=== PATIENT | female | born 1940 | race Caucasian/White ===

== ENCOUNTER 2020-11-29 18:51 | Inpatient (IN) | payer MEDICARE, MEDICAID ==
[~2020-11-29] VITALS: Ht 162.6 cm; Wt 104.4 kg
--- NOTE | 2020-11-29 19:04 | PHYS DOC ---
General Adult EDM: Chief Complaint: MEDICAL CLEARANCE HPI: HPI: 80-year-old female presents for medical clearance for behavioral health admission. The patient was reported to be anxious, touching other residents, and being uncooperative at her care facility. She denies any medical complaints to me. Review of Systems: Review of Systems: Constitutional: Denies fever or chills Eyes: Denies change in visual acuity HENT: Denies nasal congestion or sore throat Respiratory: Denies cough or shortness of breath Cardiovascular: Denies chest pain or edema GI: Denies abdominal pain, nausea, vomiting, bloody stools or diarrhea : Denies dysuria Musculoskeletal: Denies back pain or joint pain Integument: Denies rash Neurologic: Denies headache, focal weakness or sensory changes Endocrine: Denies polyuria or polydipsia Lymphatic: Denies swollen glands Psychiatric: Denies depression or anxiety Physical Exam: PE: Constitutional: Well developed, well nourished, no acute distress, non-toxic appearance. [] HENT: Normocephalic, atraumatic, bilateral external ears normal, oropharynx moist, no oral exudates, nose normal. [] Eyes: PERRLA, EOMI, conjunctiva normal, no discharge. [] Neck: Normal range of motion, no tenderness, supple, no stridor. [] Cardiovascular:Heart rate regular rhythm, no murmur [] Lungs & Thorax: Bilateral breath sounds clear to auscultation [] Abdomen: Bowel sounds normal, soft, no tenderness, no masses, no pulsatile masses. [] Skin: Warm, dry, no erythema, no rash. [] Back: No tenderness, no CVA tenderness. [] Extremities: No tenderness, no cyanosis, no clubbing, ROM intact, no edema. [] Neurologic: Alert and oriented X 3, normal motor function, normal sensory function, no focal deficits noted. [] Psychologic: Affect normal, judgement normal, mood normal. [] EKG: EKG: Irregular rhythm, rate 63, normal axis, no ST elevation or depression, A. fib. [] Radiology/Procedures: Radiology/Procedures: [] Heart Score: C/O Chest Pain: N/A Risk Factors: Risk Factors: DM, Current or recent (<one month) smoker, HTN, HLP, family history of CAD, obesity. Risk Scores: Score 0 - 3: 2.5% MACE over next 6 weeks - Discharge Home Score 4 - 6: 20.3% MACE over next 6 weeks - Admit for Clinical Observation Score 7 - 10: 72.7% MACE over next 6 weeks - Early Invasive Strategies Course & Med Decision Making: Course & Med Decision Making Pertinent Labs and Imaging studies reviewed. (See chart for details) The patient's labs are unremarkable. Her EKG shows A. fib rate controlled. The patient urinated right before we were able to catheter. Based on her lab values, it seems that infection is unlikely. She is medically stable for behavioral health admission at this time. Urinalysis can be done on the floor. [] Dragon Disclaimer: Dragon Disclaimer: This electronic medical record was generated, in whole or in part, using a voice recognition dictation system. Departure Departure: Impression: Primary Impression: Medical clearance for psychiatric admission Disposition: HOME / SELF CARE / HOMELESS Condition: STABLE Referrals: PCP,UNKNOWN (PCP) ANAHI ROSALES DO Nov 29, 2020 19:03
[2020-11-29 19:39] LABS: BASO % 1 % (0-3); EOS # 0.2 x10^3/uL (0.0-0.7); EOS % 5 % (0-3); HEMATOCRIT 33.2 % (36.0-47.0); LYMPH # 1.1 x10^3/uL (1.0-4.8); LYMPH % 24 % (24-48); MEAN CORPUSCULAR HEMOGLOBIN 30 pg (25-35); MEAN CORPUSCULAR HGB CONC 33 g/dL (31-37); MEAN CORPUSCULAR VOLUME 92 fL (79-100); MONO # 0.6 x10^3/uL (0.0-1.1); MONO % 14 % (0-9); NEUT # 2.7 x10^3uL (1.8-7.7); NEUT % 56 % (31-73); PLATELET COUNT 116 x10^3/uL (140-400); RED BLOOD COUNT 3.62 x10^6/uL (3.50-5.40); RED CELL DISTRIBUTION WIDTH 13.5 % (11.5-14.5); WHITE BLOOD COUNT 4.7 x10^3/uL (4.0-11.0)
[2020-11-29 19:57] LABS: CALCIUM 8.5 mg/dL (8.5-10.1); CREATININE 1.2 mg/dL (0.6-1.0); GFR 43.2; POTASSIUM 3.7 mmol/L (3.5-5.1)
[2020-11-29 20:03] LABS: ALBUMIN 3.2 g/dL (3.4-5.0); MAGNESIUM 1.7 mg/dL (1.8-2.4); TOTAL BILIRUBIN 0.3 mg/dL (0.2-1.0); TOTAL PROTEIN 6.3 g/dL (6.4-8.2)
--- NOTE | 2020-11-29 21:16 | EKG ---
[address] [address] Test Date: 2020-11-29 Test Time: 20:07:51 Pat Name: SYLVESTER POWER Department: Room: Gender: F Ict Trainer: : 1940 Requested By: ANAHI ROSALES Order Number: [id number] Reading MD: Measurements Intervals Whitman Rate: 63 P: ME: QRS: 51 QRSD: 82 T: 56 QT: 404 QTc: 416 Interpretive Statements IRREGULAR RHYTHM, NO P-WAVE FOUND NO SPECIFIC ECG ABNORMALITIES RI6.02 No previous ECG available for comparison
[2020-11-29 21:29] LABS: BILIRUBIN,URINE NEG (NEG); CLARITY,URINE CLEAR; COLOR,URINE YELLOW; GLUCOSE,URINE NEG (NEG); NITRITE,URINE NEG (NEG); UROBILINOGEN,URINE 0.2 mg/dL (0.2 mg/dL)
[2020-11-29 21:31] LABS: BACTERIA,URINE FEW /HPF (0-FEW); RBC,URINE 0 /HPF (0-2); SQUAMOUS EPITHELIAL CELL,UR MOD /LPF; WBC,URINE RARE /HPF (0-4)
[2020-11-29] MEDS ORDERED: METHYL SALICYLATE/MENTHOL TOPICAL OINTMENT 57GM TUBE. TP PRN (21:45)
[2020-11-29] MEDS ORDERED: MAGNESIUM HYDROXIDE 2,400 MG/30 ML ORAL.SUSP. PO PRN (21:45)
[2020-11-29] MEDS ORDERED: ACETAMINOPHEN 325 MG TABLET PO PRN (21:45)
[2020-11-29] MEDS ORDERED: MAG HYDROX/AL HYDROX/SIMETH 30 ML ORAL.SUSP PO PRN (21:45)
[2020-11-29] MEDS ORDERED: ALPRAZolam 0.25 MG TABLET PO PRN (22:00)
[2020-11-29] MEDS ORDERED: CARB15DR2 OP (22:04)
[2020-11-29] MEDS ORDERED: HYDR-2759 PO (22:04)
[2020-11-29] MEDS ORDERED: GLIP5TAB10 PO (22:04)
[2020-11-29] MEDS ORDERED: PANT40TA6 PO (22:04)
[2020-11-29] MEDS ORDERED: POTA20TA4 PO (22:04)
[2020-11-29] MEDS ORDERED: FURO-68 PO (22:04)
[2020-11-29] MEDS ORDERED: SENN1TAB62 PO (22:04)
[2020-11-29] MEDS ORDERED: DICL100G28 TP (22:04)
[2020-11-29] MEDS ORDERED: CALC200T3 PO (22:04)
[2020-11-29] MEDS ORDERED: PARO20TA99 PO (22:04)
[2020-11-29] MEDS ORDERED: ASPI-630 PO (22:04)
[2020-11-29] MEDS ORDERED: MULT-445 PO (22:04)
[2020-11-29] MEDS ORDERED: DILT120C99 PO (22:04)
[2020-11-29] MEDS ORDERED: LEVO25TA4 PO (22:04)
[2020-11-29] MEDS ORDERED: ALPR0.25 PO (22:04)
[2020-11-29] MEDS ORDERED: SITA100T PO (22:04)
[2020-11-29] MEDS ORDERED: APIX5TAB3 PO (22:04)
--- NOTE | 2020-11-29 22:19 | PDOC ---
Exam Note: [place] Note: Please also refer to the separate dictated note~for this date of service dictated separately.~Patient seen individually. Discussed the patient with Nursing staff reviewed the chart.~Reviewed interim history and current functioning. Reviewed vital signs,~Labs/ Radiology~and current medications noted below. Continue current treatment with the changes noted in the dictated addendum note Assessment: Vital Signs/I&O: Vital Signs Date Time Temp Pulse Resp B/P (MAP) Pulse Ox O2 Delivery O2 Flow Rate FiO2 11/29/20 19:46 98.4 73 20 125/67 96 Room Air Labs: Laboratory Tests Test 11/29/20 19:13 11/29/20 20:55 White Blood Count 4.7 x10^3/uL (4.0-11.0) Red Blood Count 3.62 x10^6/uL (3.50-5.40) Hemoglobin 11.0 g/dL (12.0-15.5) L Hematocrit 33.2 % (36.0-47.0) L Mean Corpuscular Volume 92 fL (79-100) Mean Corpuscular Hemoglobin 30 pg (25-35) Mean Corpuscular Hemoglobin Concent 33 g/dL (31-37) Red Cell Distribution Width 13.5 % (11.5-14.5) Platelet Count 116 x10^3/uL (140-400) L Neutrophils (%) (Auto) 56 % (31-73) Lymphocytes (%) (Auto) 24 % (24-48) Monocytes (%) (Auto) 14 % (0-9) H Eosinophils (%) (Auto) 5 % (0-3) H Basophils (%) (Auto) 1 % (0-3) Neutrophils # (Auto) 2.7 x10^3uL (1.8-7.7) Lymphocytes # (Auto) 1.1 x10^3/uL (1.0-4.8) Monocytes # (Auto) 0.6 x10^3/uL (0.0-1.1) Eosinophils # (Auto) 0.2 x10^3/uL (0.0-0.7) Basophils # (Auto) 0.0 x10^3/uL (0.0-0.2) Sodium Level 136 mmol/L (136-145) Potassium Level 3.7 mmol/L (3.5-5.1) Chloride Level 100 mmol/L (98-107) Carbon Dioxide Level 27 mmol/L (21-32) Anion Gap 9 (6-14) Blood Urea Nitrogen 17 mg/dL (7-20) Creatinine 1.2 mg/dL (0.6-1.0) H Estimated GFR (Cockcroft-Gault) 43.2 BUN/Creatinine Ratio 14 (6-20) Glucose Level 177 mg/dL (70-99) H Calcium Level 8.5 mg/dL (8.5-10.1) Magnesium Level 1.7 mg/dL (1.8-2.4) L Total Bilirubin 0.3 mg/dL (0.2-1.0) Aspartate Amino Transferase (AST) 19 U/L (15-37) Alanine Aminotransferase (ALT) 16 U/L (14-59) Alkaline Phosphatase 114 U/L (46-116) Total Protein 6.3 g/dL (6.4-8.2) L Albumin 3.2 g/dL (3.4-5.0) L Albumin/Globulin Ratio 1.0 (1.0-1.7) Urine Collection Type Unknown Urine Color Yellow Urine Clarity Clear Urine pH 6.5 Urine Specific Haywood 1.015 Urine Protein Neg (NEG-TRACE) Urine Glucose (UA) Neg mg/dL (NEG) Urine Ketones (Stick) Neg mg/dL (NEG) Urine Blood Small (NEG) Urine Nitrite Neg (NEG) Urine Bilirubin Neg (NEG) Urine Urobilinogen Dipstick 0.2 mg/dL (0.2 mg/dL) Urine Leukocyte Esterase Neg (NEG) Urine RBC 0 /HPF (0-2) Urine WBC Rare /HPF (0-4) Urine Squamous Epithelial Cells Mod /LPF Urine Bacteria Few /HPF (0-FEW) Current Medications: I have reviewed the current psychotropics carefully including drug interactions. Risk benefit ratio favors no change other than as noted in my dictated progress note. GERRY TAYLOR MD Nov 29, 2020 22:19
[2020-11-29 22:23] VITALS: BP 148/76
--- NOTE | 2020-11-29 22:41 | NUR ---
Admission Note with Justification for Admission to [facility] Patient admitted to [facility] for protective oversight for emergency stabilization of acute psychiatric crisis. Pt admitted from: Hospital ER Mode of arrival: EMS Accompanied By: [facility] Staff Precipitating behaviors that initiated intake and admission:anxious, on the call light, constantly touching other residents, demanding, intrusive Description of failure of out patient attempts at stabilization in previous setting list behavior and medication trials:redirection, medications Behaviors and assessment findings upon admission: calm, cooperative, A/O x4 Plan: Admit for protective oversight for adjustment and stabilization of medications, behaviors and mood. Intense treatment regimen including groups, medication adjustments, therapy, consistent regimen for ADL's, self care, and sleep hygiene. Daily monitoring by Inpatient staff, Psychiatry, and Medical Physician.
[2020-11-30 07:00] LABS: ALBUMIN 3.3 g/dL (3.4-5.0); CALCIUM 8.6 mg/dL (8.5-10.1); CREATININE 1.1 mg/dL (0.6-1.0); GFR 47.8; MAGNESIUM 1.6 mg/dL (1.8-2.4); POTASSIUM 4.2 mmol/L (3.5-5.1); TOTAL BILIRUBIN 0.5 mg/dL (0.2-1.0); TOTAL PROTEIN 6.5 g/dL (6.4-8.2)
[2020-11-30 07:06] LABS: BASO % 1 % (0-3); EOS # 0.2 x10^3/uL (0.0-0.7); EOS % 5 % (0-3); HEMOGLOBIN 11.3 g/dL (12.0-15.5); LYMPH % 20 % (24-48); MEAN CORPUSCULAR HEMOGLOBIN 30 pg (25-35); MEAN CORPUSCULAR HGB CONC 33 g/dL (31-37); MEAN CORPUSCULAR VOLUME 91 fL (79-100); MONO # 0.5 x10^3/uL (0.0-1.1); MONO % 11 % (0-9); NEUT # 3.1 x10^3uL (1.8-7.7); NEUT % 64 % (31-73); PLATELET COUNT 116 x10^3/uL (140-400); RED BLOOD COUNT 3.73 x10^6/uL (3.50-5.40); RED CELL DISTRIBUTION WIDTH 13.6 % (11.5-14.5); WHITE BLOOD COUNT 4.8 x10^3/uL (4.0-11.0)
[2020-11-30] MEDS ORDERED: CALCIUM CARBONATE 500 MG TAB.CHEW PO PRN (07:45)
[2020-11-30] MEDS ORDERED: DICLOFENAC SODIUM 1% TOPICAL GEL 100GM TUBE. TP PRN (07:45)
[2020-11-30] MEDS ORDERED: LEVOTHYROXINE 25 MCG TABLET. PO SCH (08:00)
[2020-11-30] MEDS: APIXABAN 5 MG TABLET. PO SCH ×2 (08:10→21:12)
[2020-11-30] MEDS: LINAGLIPTIN 5 MG TABLET PO SCH (08:11)
[2020-11-30] MEDS: glipiZIDE 5 MG TABLET PO SCH ×2 (08:11→17:16)
[2020-11-30] MEDS: FUROSEMIDE 40 MG TABLET PO SCH (08:11)
[2020-11-30] MEDS: PANTOPRAZOLE 40 MG TABLET. PO SCH (08:11)
[2020-11-30] MEDS: PARoxetine 20 MG TABLET PO SCH (08:11)
[2020-11-30] MEDS: POTASSIUM CHLORIDE 20 MEQ TABLET.ER. PO SCH (08:12)
[2020-11-30] MEDS: SENNOSIDES/DOCUSATE 8.6/50MG TABLET. PO SCH (08:12)
[2020-11-30] MEDS ORDERED: NON FORMULARY ITEM (Sitagliptin Phosphate (Januvia) 100 MG) PO SCH (09:00)
[2020-11-30] MEDS ORDERED: NON FORMULARY ITEM (Multivitamin (Multivitamins) 1 EACH) PO SCH (09:00)
[2020-11-30] MEDS ORDERED: CARBOXYMETHYLCELLULOSE SODIUM OP SCH (09:00)
[2020-11-30 09:29] VITALS: BP 124/79
[2020-11-30] MEDS: ASPIRIN CHEWABLE 81 MG TABLET. PO SCH (09:35)
[2020-11-30] MEDS: MULTIVITAMIN I-VITE TABLET. PO SCH (09:35)
[2020-11-30] MEDS: POLYVINYL ALCOHOL/POVIDONE/PF OPHTH SOLUTION DROPERETTE. OU SCH ×3 (09:35→21:12)
[2020-11-30] MEDS: HYDROcodone/APAP 5/325MG 1 TAB TABLET PO SCH ×4 (09:36→21:12)
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
[2020-11-30 16:11] VITALS: BP 115/77
[2020-11-30 17:00] LABS: THYROID STIM HORMONE (TSH) 6.681 uIU/mL (0.358-3.740)
--- NOTE | 2020-11-30 22:12 | PDOC ---
Exam Note: Pelon Note: Please also refer to the separate dictated note~for this date of service dictated separately.~Patient seen individually. Discussed the patient with Nursing staff reviewed the chart.~Reviewed interim history and current functioning. Reviewed vital signs,~Labs/ Radiology~and current medications noted below. Continue current treatment with the changes noted in the dictated addendum note Assessment: Vital Signs/I&O: Vital Signs Date Time Temp Pulse Resp B/P (MAP) Pulse Ox O2 Delivery O2 Flow Rate FiO2 11/30/20 21:12 Room Air 11/30/20 17:46 95 11/30/20 16:11 97.5 78 18 115/77 (90) I & O 11/29/20 11/29/20 11/30/20 15:00 23:00 07:00 Intake Total 360 ml Balance 360 ml Labs: Laboratory Tests Test 11/30/20 05:45 11/30/20 19:12 White Blood Count 4.8 x10^3/uL (4.0-11.0) Red Blood Count 3.73 x10^6/uL (3.50-5.40) Hemoglobin 11.3 g/dL (12.0-15.5) L Hematocrit 34.0 % (36.0-47.0) L Mean Corpuscular Volume 91 fL (79-100) Mean Corpuscular Hemoglobin 30 pg (25-35) Mean Corpuscular Hemoglobin Concent 33 g/dL (31-37) Red Cell Distribution Width 13.6 % (11.5-14.5) Platelet Count 116 x10^3/uL (140-400) L Neutrophils (%) (Auto) 64 % (31-73) Lymphocytes (%) (Auto) 20 % (24-48) L Monocytes (%) (Auto) 11 % (0-9) H Eosinophils (%) (Auto) 5 % (0-3) H Basophils (%) (Auto) 1 % (0-3) Neutrophils # (Auto) 3.1 x10^3uL (1.8-7.7) Lymphocytes # (Auto) 1.0 x10^3/uL (1.0-4.8) Monocytes # (Auto) 0.5 x10^3/uL (0.0-1.1) Eosinophils # (Auto) 0.2 x10^3/uL (0.0-0.7) Basophils # (Auto) 0.0 x10^3/uL (0.0-0.2) D-Dimer (Gemma) 0.70 mg/L (0.00-0.50) H Sodium Level 138 mmol/L (136-145) Potassium Level 4.2 mmol/L (3.5-5.1) Chloride Level 101 mmol/L (98-107) Carbon Dioxide Level 30 mmol/L (21-32) Anion Gap 7 (6-14) Blood Urea Nitrogen 16 mg/dL (7-20) Creatinine 1.1 mg/dL (0.6-1.0) H Estimated GFR (Cockcroft-Gault) 47.8 BUN/Creatinine Ratio 15 (6-20) Glucose Level 152 mg/dL (70-99) H Calcium Level 8.6 mg/dL (8.5-10.1) Magnesium Level 1.6 mg/dL (1.8-2.4) L Total Bilirubin 0.5 mg/dL (0.2-1.0) Aspartate Amino Transferase (AST) 20 U/L (15-37) Alanine Aminotransferase (ALT) 17 U/L (14-59) Alkaline Phosphatase 117 U/L (46-116) H Total Protein 6.5 g/dL (6.4-8.2) Albumin 3.3 g/dL (3.4-5.0) L Albumin/Globulin Ratio 1.0 (1.0-1.7) Triglycerides Level 146 mg/dL (0-150) Cholesterol Level 182 mg/dL (0-200) LDL Cholesterol, Calculated 117 mg/dL (0-100) H VLDL Cholesterol, Calculated 29 mg/dL (0-40) Non-HDL Cholesterol Calculated 146 mg/dL (0-129) H HDL Cholesterol 36 mg/dL (40-60) L Cholesterol/HDL Ratio 5.0 Vitamin B12 Level 591 pg/mL (247-911) 25-Hydroxy Vitamin D Total 24.0 ng/mL (30-100) L Thyroid Stimulating Hormone (TSH) 6.681 uIU/mL (0.358-3.740) Treponema pallidum Antibody Nonreactive (Nonreactive) Glucose (Fingerstick) 194 mg/dL (70-99) H Current Medications: Meds: Laboratory Tests Test 11/30/20 05:45 11/30/20 19:12 White Blood Count 4.8 x10^3/uL Red Blood Count 3.73 x10^6/uL Hemoglobin 11.3 g/dL Hematocrit 34.0 % Mean Corpuscular Volume 91 fL Mean Corpuscular Hemoglobin 30 pg Mean Corpuscular Hemoglobin Concent 33 g/dL Red Cell Distribution Width 13.6 % Platelet Count 116 x10^3/uL Neutrophils (%) (Auto) 64 % Lymphocytes (%) (Auto) 20 % Monocytes (%) (Auto) 11 % Eosinophils (%) (Auto) 5 % Basophils (%) (Auto) 1 % Neutrophils # (Auto) 3.1 x10^3uL Lymphocytes # (Auto) 1.0 x10^3/uL Monocytes # (Auto) 0.5 x10^3/uL Eosinophils # (Auto) 0.2 x10^3/uL Basophils # (Auto) 0.0 x10^3/uL D-Dimer (Gemma) 0.70 mg/L Sodium Level 138 mmol/L Potassium Level 4.2 mmol/L Chloride Level 101 mmol/L Carbon Dioxide Level 30 mmol/L Anion Gap 7 Blood Urea Nitrogen 16 mg/dL Creatinine 1.1 mg/dL Estimated GFR (Cockcroft-Gault) 47.8 BUN/Creatinine Ratio 15 Glucose Level 152 mg/dL Calcium Level 8.6 mg/dL Magnesium Level 1.6 mg/dL Total Bilirubin 0.5 mg/dL Aspartate Amino Transf (AST/SGOT) 20 U/L Alanine Aminotransferase (ALT/SGPT) 17 U/L Alkaline Phosphatase 117 U/L Total Protein 6.5 g/dL Albumin 3.3 g/dL Albumin/Globulin Ratio 1.0 Triglycerides Level 146 mg/dL Cholesterol Level 182 mg/dL LDL Cholesterol, Calculated 117 mg/dL VLDL Cholesterol, Calculated 29 mg/dL Non-HDL Cholesterol Calculated 146 mg/dL HDL Cholesterol 36 mg/dL Cholesterol/HDL Ratio 5.0 Vitamin B12 Level 591 pg/mL 25-Hydroxy Vitamin D Total 24.0 ng/mL Thyroid Stimulating Hormone (TSH) 6.681 uIU/mL Treponema pallidum Antibody Nonreactive Glucose (Fingerstick) 194 mg/dL Current Medications Medications (Trade) Dose Ordered Sig/Fam Route PRN Reason Start Time Stop Time Status Last Admin Dose Admin Acetaminophen (Tylenol) 650 mg PRN Q6HRS PRN PO MILD PAIN / TEMP > 100.3'F 11/29/20 21:45 Multi-Ingredient Ointment (Analgesic Earp) 1 rena PRN QID PRN TP MUSCLE PAIN 11/29/20 21:45 Al Hydroxide/Mg Hydroxide (Mylanta Plus Xs) 15 ml PRN AFTMEALHC PRN PO DYSPEPSIA 11/29/20 21:45 Magnesium Hydroxide (Milk Of Magnesia) 2,400 mg PRN QHS PRN PO CONSTIPATION 11/29/20 21:45 Alprazolam (Xanax) 0.125 mg PRN Q6HRS PRN PO ANXIETY / AGITATION 11/29/20 22:00 Paroxetine HCl (Paxil) 20 mg DAILY PO 11/30/20 09:00 11/30/20 08:11 Apixaban (Eliquis) 5 mg BID PO 11/30/20 09:00 11/30/20 21:12 Aspirin (Aspirin Chewable) 81 mg DAILY PO 11/30/20 09:00 11/30/20 09:35 Calcium Carbonate/ Glycine (Tums) 500 mg PRN Q6HRS PRN PO INDIGESTION 11/30/20 07:45 Diclofenac Sodium (Voltaren) 1 rnea PRN Q6HRS PRN TP pain L hip 11/30/20 07:45 Diltiazem HCl (Cardizem 24hr Cd) 120 mg DAILY PO 11/30/20 09:00 11/30/20 08:11 Furosemide (Lasix) 40 mg DAILY PO 11/30/20 09:00 11/30/20 08:11 Glipizide (Glucotrol) 5 mg BIDWMEALS PO 11/30/20 08:00 11/30/20 17:16 Acetaminophen/ Hydrocodone Bitart (Lortab 5/325) 1.5 tab QID PO 11/30/20 09:00 11/30/20 21:12 Levothyroxine Sodium (Synthroid) 25 mcg DAILYAC PO 11/30/20 08:00 11/30/20 14:15 DC 11/30/20 08:12 Pantoprazole Sodium (Protonix) 40 mg DAILY PO 11/30/20 09:00 11/30/20 08:11 Potassium Chloride (Klor-Con) 20 meq DAILY PO 11/30/20 09:00 11/30/20 08:12 Senna/Docusate Sodium (Senna Plus) 2 tab DAILY PO 11/30/20 09:00 11/30/20 08:12 Non-Formulary Medication (Carboxymethylcellulose Sodium (Refresh Tears)) 1 drp TID OP 11/30/20 09:00 11/30/20 07:55 DC Non-Formulary Medication (Multivitamin (Multivitamins)) 1 each DAILY PO 11/30/20 09:00 11/30/20 07:55 DC Non-Formulary Medication (Sitagliptin Phosphate (Januvia)) 100 mg DAILY PO 11/30/20 09:00 11/30/20 07:51 DC Linagliptin (Tradjenta) 5 mg DAILY PO 11/30/20 09:00 11/30/20 08:11 Multivitamins/ Minerals (I-Bridget) 1 tab DAILY PO 11/30/20 09:00 11/30/20 09:35 Artificial Tears (Refresh Classic) 1 drop TID OU 11/30/20 09:00 11/30/20 21:12 Levothyroxine Sodium (Synthroid) 25 mcg 0600 PO 12/01/20 06:00 Current Medications Medications (Trade) Dose Ordered Sig/Fam Route PRN Reason Start Time Stop Time Status Last Admin Dose Admin Paroxetine HCl (Paxil) 20 mg DAILY PO 11/30/20 09:00 11/30/20 08:11 Apixaban (Eliquis) 5 mg BID PO 11/30/20 09:00 11/30/20 21:12 Aspirin (Aspirin Chewable) 81 mg DAILY PO 11/30/20 09:00 11/30/20 09:35 Diltiazem HCl (Cardizem 24hr Cd) 120 mg DAILY PO 11/30/20 09:00 11/30/20 08:11 Furosemide (Lasix) 40 mg DAILY PO 11/30/20 09:00 11/30/20 08:11 Glipizide (Glucotrol) 5 mg BIDWMEALS PO 11/30/20 08:00 11/30/20 17:16 Acetaminophen/ Hydrocodone Bitart (Lortab 5/325) 1.5 tab QID PO 11/30/20 09:00 11/30/20 21:12 Levothyroxine Sodium (Synthroid) 25 mcg DAILYAC PO 11/30/20 08:00 11/30/20 14:15 DC 11/30/20 08:12 Pantoprazole Sodium (Protonix) 40 mg DAILY PO 11/30/20 09:00 11/30/20 08:11 Potassium Chloride (Klor-Con) 20 meq DAILY PO 11/30/20 09:00 11/30/20 08:12 Senna/Docusate Sodium (Senna Plus) 2 tab DAILY PO 11/30/20 09:00 11/30/20 08:12 Linagliptin (Tradjenta) 5 mg DAILY PO 11/30/20 09:00 11/30/20 08:11 Multivitamins/ Minerals (I-Bridget) 1 tab DAILY PO 11/30/20 09:00 11/30/20 09:35 Artificial Tears (Refresh Classic) 1 drop TID OU 11/30/20 09:00 11/30/20 21:12 I have reviewed the current psychotropics carefully including drug interactions. Risk benefit ratio favors no change other than as noted in my dictated progress note. GERRY TAYLOR MD Nov 30, 2020 22:12
--- NOTE | 2020-11-30 22:40 | HP ---
ADMIT DATE: 11/30/2020 PSYCHIATRIC ADMISSION HISTORY AND EVALUATION PRIMARY CARE PHYSICIAN: Dr. Mckeon. This note covers elements not covered in my initial note of 11/30. IDENTIFYING DATA: The patient is an 80-year-old female referred to us from [facility] by Dr. Mckeon, her primary care physician on account of worsening anxiety, irritability within the context of her impulse control and major depressive disorder. She has been provoking the other residents who were angry at her. The patient has been anxious on the call light all the time, constantly touching other residents. She has been entering into the rooms of other residents, seeking help from peers demanding invasive. She has failed outpatient psychiatric interventions. Behaviors have been quite disruptive at the facility resulting in this referral for inpatient psychiatric stabilization, having failed outpatient psychiatric interventions. CHIEF COMPLAINT: "I don't do those things. I have been at [place] maybe 3 months. I do not know the name of the president, the year is 2020." HISTORY OF PRESENT ILLNESS: The patient has a history of some short-term memory deficits, worsening mood swings, depression and anxiety. She has had sleep and appetite changes. No active suicidal or homicidal ideation. PAST PSYCHIATRIC HISTORY: As above. PAST MEDICAL HISTORY: Cerebrovascular disease, type 2 diabetes mellitus, atrial fibrillation, dysphagia, morbid obesity, spinal stenosis, right-sided hemiplegia and hemiparesis, hyperlipidemia, hypertension, GERD, diverticulum of the appendix. ALLERGIES: PENICILLIN ____ COENZYME A REDUCTASE INHIBITORS AND BEES AND DUST. CODE STATUS: DNR. Accu-Cheks b.i.d. DIET: Regular. Takes medications whole. Ambulates in wheelchair and [place]. UA on 11/29 is negative. CURRENT PSYCHOTROPICS: Paxil 20 mg a day, Xanax 0.125 mg q.6 hours p.r.n. anxiety. FAMILY HISTORY: Noncontributory. 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 She thinks she retired 2 years ago. Denied any alcohol, drug abuse. She states she had four children, one son of an [place] at the age of 33 and a daughter from cancer at the age of 43. Her oldest child lives in [place]. Her daughter who is the youngest lives in [place] and speaks to the patient about once a month. The older daughter in [place] has limited telephone contact with the patient. REVIEW OF SYSTEMS: Ambulation impaired in wheelchair. No CV, , pulmonary, eye, ENT system symptoms on review. MENTAL STATUS EXAMINATION: The patient is oriented to herself, situation. Speech has some latency coherent. Abstraction fair. Computation impaired. Language function intact. Short-term memory has some impairment. Mood is somewhat depressed and anxious. No active suicidal or homicidal ideation. LABORATORY DATA: Reviewed. IMPRESSION: Major depressive disorder, recurrent; rule out psychotic features; anxiety disorder, unspecified; mild cognitive impairment. Rest unchanged as above. PLAN: Admit to Geropsychiatry Unit at [facility]. I will see the patient daily individually from a psychiatric standpoint, medical followup with Dr. Reveles/Dr. Mathews. Continue the patient on her current psychotropics, add Zyprexa p.r.n. Consider changing to Paxil, Zoloft, Cymbalta. We will make these decisions post baseline assessment. ESTIMATED LENGTH OF STAY: 10-12 days. DISPOSITION: Back to jail when stable. YAJAIRA/SHAHBAZ DR: Federico TID: [id number]
--- NOTE | 2020-11-30 23:42 | CONS ---
DATE OF CONSULTATION: 11/30/2020 ATTENDING PHYSICIAN: Dr. Sinha. We are asked to see this patient for medical consultation. HISTORY OF PRESENT ILLNESS: The patient is an 80-year-old female, referred from a half-way in [place], [place]. Previously, she had lived in her own place in [place], [place]. Since January 2000, she was moved to a half-way to be closer to family, a granddaughter is durable power of finance attorney. 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 She is very demanding, invasive. She has impulse control disorder. She has had memory issues and a previous stroke. PAST MEDICAL HISTORY: Significant for degenerative arthritis, type 2 diabetes, hypothyroidism, gastroesophageal reflux disease, depression, chronic anticoagulation, whether this is for atrial fibrillation or prevention of stroke remains to be seen, she could not have any further details. ALLERGIES: She has allergies to PENICILLINS, STATINS, DUST. CURRENT MEDICATIONS: Include Xanax, Eliquis 5 mg b.i.d., aspirin, calcium carbonate, Refresh tear, diclofenac gel, diltiazem, Lasix 40 mg daily, glipizide 5 mg daily, hydrocodone p.r.n., Synthroid, multivitamin, Protonix, Paxil, potassium, senna and Januvia. SOCIAL HISTORY: She is a nonsmoker, nondrinker. FAMILY HISTORY: Unobtainable. REVIEW OF SYSTEMS: Significant for the data from the initial intake. She is confused, but not agitated at this time. All other systems reviewed and turned to be negative. PHYSICAL EXAMINATION: GENERAL: When I saw her, this is a pleasant elderly female. VITAL SIGNS: Showed blood pressure 148/76, pulse is 67 and regular. She is afebrile. Oxygen saturation 96% on room air. HEENT: Head is without trauma. Pupils are reactive. Sclerae is nonicteric. Oropharynx is clear. NECK: Supple, no bruits identified. LUNGS: Otherwise clear. CARDIOVASCULAR: Regular heart tones. No obvious gallops. Peripheral pulses are palpable and full. ABDOMEN: Soft. No guarding or rebound tenderness. Bowel sounds were hypoactive. EXTREMITIES: Show degenerative arthritis of both knees. She is wheelchair bound. She is nonambulatory at this time. SKIN: Warm and dry. NEUROLOGIC: Speech is fluent, intact. Specialty Finishing Utility Person were intact. PERTINENT LABORATORY STUDIES: At admission hemoglobin was 11.3 g/dL with a white count of 4800. Her creatinine is 1.1 mg/dL. Electrolytes within normal range. Nonfasting blood sugar 152. Liver panel, transaminases unremarkable. ASSESSMENT: 1. This 80-year-old female, half-way resident from [place], has underlying dementia with impulse control disorder. 2. Degenerative arthritis. 3. Paroxysmal atrial fibrillation. 4. Chronic anticoagulation. 5. Hypertension. 6. Type 2 diabetes mellitus. RECOMMENDATIONS: 1. This patient is stable from a medical standpoint. 2. Home medications were reviewed and should be continued. 3. She is a DNR per advanced directives. We will respect her wishes. Thank you again for asking me to see the patient for medical consultation. We should gladly follow along during her inpatient stay. KAILA DR: Lizbeth TID: [id number]
[2020-12-01 00:07] LABS: HEMOGLOBIN A1C 6.6 % (4.8-5.6)
[2020-12-01 01:07] LABS: THYROXINE 10.1 ug/dL (4.5-12.0)
--- NOTE | 2020-12-01 02:28 | NUR ---
Last evening pt quietly wheeled her self around the unit. She has been cooperative with staff and took meds whole. She has had no behaviors tonight.
[2020-12-01] MEDS: LEVOTHYROXINE 25 MCG TABLET. PO SCH (05:46)
[2020-12-01 06:34] VITALS: BP 113/52
[2020-12-01] MEDS: MULTIVITAMIN I-VITE TABLET. PO SCH (08:49)
[2020-12-01] MEDS: PARoxetine 20 MG TABLET PO SCH (08:50)
[2020-12-01] MEDS: PANTOPRAZOLE 40 MG TABLET. PO SCH (08:50)
[2020-12-01] MEDS: FUROSEMIDE 40 MG TABLET PO SCH (08:50)
[2020-12-01] MEDS: glipiZIDE 5 MG TABLET PO SCH ×2 (08:50→17:15)
[2020-12-01] MEDS: APIXABAN 5 MG TABLET. PO SCH ×2 (08:50→20:11)
[2020-12-01] MEDS: LINAGLIPTIN 5 MG TABLET PO SCH (08:50)
[2020-12-01] MEDS: ASPIRIN CHEWABLE 81 MG TABLET. PO SCH (08:50)
[2020-12-01] MEDS: SENNOSIDES/DOCUSATE 8.6/50MG TABLET. PO SCH (08:51)
[2020-12-01] MEDS: HYDROcodone/APAP 5/325MG 1 TAB TABLET PO SCH ×4 (08:51→20:12)
[2020-12-01] MEDS: POTASSIUM CHLORIDE 20 MEQ TABLET.ER. PO SCH (08:51)
[2020-12-01] MEDS: POLYVINYL ALCOHOL/POVIDONE/PF OPHTH SOLUTION DROPERETTE. OU SCH ×3 (08:51→20:10)
--- NOTE | 2020-12-01 11:33 | NUR ---
Nursing Note: Pt. was calm, cooperative, and medication complaint today. She has had pain throughout the day that she states is in her hip area, she receives scheduled hydrocodone throughout the day to help with this. Pt has been interactive in the day room and in groups. She has wandered throughout the unit in her wheelchair throughout the day. Pt. has not had any behaviors at this time
[2020-12-01 16:06] VITALS: BP 124/70
--- NOTE | 2020-12-01 16:30 | NUR ---
ACTIVITY THERAPY ASSESSMENT Completed based on observation, notes and interview. Pt. was propelling herself in her wheelchair in the hallway and agreeable to go to her room and speak with FORMWORK CARPENTER. Pt. was aware of how long she had been on the unit and explained her mind was good at times and bad others and that was why she was here. She said she was feeling better at this time. She shared she has back pain but medication helps with that. Pt had her own word search book in hand. She said she doesn't like to just watch TV, she enjoys group activities at her facility: Bingo, card playing, etc. She declined books when offered but was open to joining groups and being invited if she was not in the day room. She shared a bit about being college educated and a bit about her traveling for work. She talked fondly of her children, grandchildren, and great-grandchildren. Reports indicated inappropriate behaviors amongst peers at facility, anxious behaviors, and short term memory deficits. Pt. has been cooperative and appropriate on unit and during assessment. She appears to be slightly hard of hearing. Initial goal aimed to increase positive social interactions and engagement: Pt. will participate in all Activity Therapy groups offered.
--- NOTE | 2020-12-01 22:22 | PDOC ---
Exam Note: Pelon Note: Please also refer to the separate dictated note~for this date of service dictated separately.~Patient seen individually. Discussed the patient with Nursing staff reviewed the chart.~Reviewed interim history and current functioning. Reviewed vital signs,~Labs/ Radiology~and current medications noted below. Continue current treatment with the changes noted in the dictated addendum note Assessment: Vital Signs/I&O: Vital Signs Date Time Temp Pulse Resp B/P (MAP) Pulse Ox O2 Delivery O2 Flow Rate FiO2 12/01/20 20:12 Room Air 12/01/20 18:20 16 95 12/01/20 16:06 97.6 79 124/70 (88) I & O 11/30/20 11/30/20 12/01/20 14:59 22:59 06:59 Intake Total 840 ml 360 ml 360 ml Balance 840 ml 360 ml 360 ml Current Medications: Meds: Current Medications Medications (Trade) Dose Ordered Sig/Fam Route PRN Reason Start Time Stop Time Status Last Admin Dose Admin Acetaminophen (Tylenol) 650 mg PRN Q6HRS PRN PO MILD PAIN / TEMP > 100.3'F 11/29/20 21:45 Multi-Ingredient Ointment (Analgesic [place]) 1 rena PRN QID PRN TP MUSCLE PAIN 11/29/20 21:45 Al Hydroxide/Mg Hydroxide (Mylanta Plus Xs) 15 ml PRN AFTMEALHC PRN PO DYSPEPSIA 11/29/20 21:45 Magnesium Hydroxide (Milk Of Magnesia) 2,400 mg PRN QHS PRN PO CONSTIPATION 11/29/20 21:45 Alprazolam (Xanax) 0.125 mg PRN Q6HRS PRN PO ANXIETY / AGITATION 11/29/20 22:00 Paroxetine HCl (Paxil) 20 mg DAILY PO 11/30/20 09:00 12/01/20 08:50 Apixaban (Eliquis) 5 mg BID PO 11/30/20 09:00 12/01/20 20:11 Aspirin (Aspirin Chewable) 81 mg DAILY PO 11/30/20 09:00 12/01/20 08:50 Calcium Carbonate/ Glycine (Tums) 500 mg PRN Q6HRS PRN PO INDIGESTION 11/30/20 07:45 12/01/20 12:46 Diclofenac Sodium (Voltaren) 1 rena PRN Q6HRS PRN TP pain L hip 11/30/20 07:45 Diltiazem HCl (Cardizem 24hr Cd) 120 mg DAILY PO 11/30/20 09:00 12/01/20 08:50 Furosemide (Lasix) 40 mg DAILY PO 11/30/20 09:00 12/01/20 08:50 Glipizide (Glucotrol) 5 mg BIDWMEALS PO 11/30/20 08:00 12/01/20 17:15 Acetaminophen/ Hydrocodone Bitart (Lortab 5/325) 1.5 tab QID PO 11/30/20 09:00 12/01/20 20:12 Levothyroxine Sodium (Synthroid) 25 mcg DAILYAC PO 11/30/20 08:00 11/30/20 14:15 DC 11/30/20 08:12 Pantoprazole Sodium (Protonix) 40 mg DAILY PO 11/30/20 09:00 12/01/20 08:50 Potassium Chloride (Klor-Con) 20 meq DAILY PO 11/30/20 09:00 12/01/20 08:51 Senna/Docusate Sodium (Senna Plus) 2 tab DAILY PO 11/30/20 09:00 12/01/20 08:51 Non-Formulary Medication (Carboxymethylcellulose Sodium (Refresh Tears)) 1 drp TID OP 11/30/20 09:00 11/30/20 07:55 DC Non-Formulary Medication (Multivitamin (Multivitamins)) 1 each DAILY PO 11/30/20 09:00 11/30/20 07:55 DC Non-Formulary Medication (Sitagliptin Phosphate (Januvia)) 100 mg DAILY PO 11/30/20 09:00 11/30/20 07:51 DC Linagliptin (Tradjenta) 5 mg DAILY PO 11/30/20 09:00 12/01/20 08:50 Multivitamins/ Minerals (I-Bridget) 1 tab DAILY PO 11/30/20 09:00 12/01/20 08:49 Artificial Tears (Refresh Classic) 1 drop TID OU 11/30/20 09:00 12/01/20 20:10 Levothyroxine Sodium (Synthroid) 25 mcg 0600 PO 12/01/20 06:00 12/01/20 05:46 Current Medications Medications (Trade) Dose Ordered Sig/Fam Route PRN Reason Start Time Stop Time Status Last Admin Dose Admin Levothyroxine Sodium (Synthroid) 25 mcg 0600 PO 12/01/20 06:00 12/01/20 05:46 I have reviewed the current psychotropics carefully including drug interactions. Risk benefit ratio favors no change other than as noted in my dictated progress note. Diagnosis: Problems: (1) Major depressive disorder (2) Mild cognitive impairment (3) Anxiety disorder, unspecified GERRY TAYLOR MD Dec 01, 2020 22:22
--- NOTE | 2020-12-02 00:34 | NUR ---
Juan pt was in the day room for awhile the sat in her room doing word search puzzles. She has been pleasant and cooperative with staff and took meds whole without difficulty. She has had no behaviors tonight.
[2020-12-02] MEDS: LEVOTHYROXINE 25 MCG TABLET. PO SCH (05:44)
[2020-12-02 06:40] VITALS: BP 135/68
--- NOTE | 2020-12-02 08:25 | PDOC ---
Exam Note: Pelon Note: This note is a late entry for 12/01/2020 covers elements not covered in my initial note. Subjective: The patient was seen individually in the evening of 12/01/2020 with Mike CHANDLER, discussed and reviewed the chart. The patient slept 6 hours previous night. She remains somewhat withdrawn. She remains anxious, restless at times. Review of Systems: Ambulation impaired in wheelchair. No CV, , pulmonary, eye system symptoms on review. She is somewhat hard of hearing. Mental Status Exam: The patient is oriented to herself and situation. Speech is coherent, has some latency. Abstraction fair. Computation impaired. Language function intact. Mood and affect somewhat anxious, restless, depressed. Laboratory Data: Reviewed. Impression: Major depressive disorder. Anxiety disorder unspecified. Mild cognitive impairment. Plan: Continue psychotropics unchanged for now but consider Paxil to Zoloft and adding BuSpar for anxiety after another day of our observation. Assessment: Vital Signs/I&O: Vital Signs Date Time Temp Pulse Resp B/P (MAP) Pulse Ox O2 Delivery O2 Flow Rate FiO2 12/02/20 06:40 97.0 83 20 135/68 (90) 95 Room Air I & O 12/01/20 12/01/20 12/02/20 15:00 23:00 07:00 Intake Total 720 ml 600 ml Balance 720 ml 600 ml Current Medications: Meds: Current Medications Medications (Trade) Dose Ordered Sig/Fam Route PRN Reason Start Time Stop Time Status Last Admin Dose Admin Acetaminophen (Tylenol) 650 mg PRN Q6HRS PRN PO MILD PAIN / TEMP > 100.3'F 11/29/20 21:45 Multi-Ingredient Ointment (Analgesic [place]) 1 rena PRN QID PRN TP MUSCLE PAIN 11/29/20 21:45 Al Hydroxide/Mg Hydroxide (Mylanta Plus Xs) 15 ml PRN AFTMEALHC PRN PO DYSPEPSIA, 2ND CHOICE 11/29/20 21:45 Magnesium Hydroxide (Milk Of Magnesia) 2,400 mg PRN QHS PRN PO CONSTIPATION 11/29/20 21:45 Alprazolam (Xanax) 0.125 mg PRN Q6HRS PRN PO ANXIETY / AGITATION 11/29/20 22:00 Paroxetine HCl (Paxil) 20 mg DAILY PO 11/30/20 09:00 12/01/20 08:50 Apixaban (Eliquis) 5 mg BID PO 11/30/20 09:00 12/01/20 20:11 Aspirin (Aspirin Chewable) 81 mg DAILY PO 11/30/20 09:00 12/01/20 08:50 Calcium Carbonate/ Glycine (Tums) 500 mg PRN Q6HRS PRN PO INDIGESTION, 1ST CHOICE 11/30/20 07:45 12/01/20 12:46 Diclofenac Sodium (Voltaren) 1 rena PRN Q6HRS PRN TP pain L hip 11/30/20 07:45 Diltiazem HCl (Cardizem 24hr Cd) 120 mg DAILY PO 11/30/20 09:00 12/01/20 08:50 Furosemide (Lasix) 40 mg DAILY PO 11/30/20 09:00 12/01/20 08:50 Glipizide (Glucotrol) 5 mg BIDWMEALS PO 11/30/20 08:00 12/01/20 17:15 Acetaminophen/ Hydrocodone Bitart (Lortab 5/325) 1.5 tab QID PO 11/30/20 09:00 12/01/20 20:12 Levothyroxine Sodium (Synthroid) 25 mcg DAILYAC PO 11/30/20 08:00 11/30/20 14:15 DC 11/30/20 08:12 Pantoprazole Sodium (Protonix) 40 mg DAILY PO 11/30/20 09:00 12/01/20 08:50 Potassium Chloride (Klor-Con) 20 meq DAILY PO 11/30/20 09:00 12/01/20 08:51 Senna/Docusate Sodium (Senna Plus) 2 tab DAILY PO 11/30/20 09:00 12/01/20 08:51 Non-Formulary Medication (Carboxymethylcellulose Sodium (Refresh Tears)) 1 drp TID OP 11/30/20 09:00 11/30/20 07:55 DC Non-Formulary Medication (Multivitamin (Multivitamins)) 1 each DAILY PO 11/30/20 09:00 11/30/20 07:55 DC Non-Formulary Medication (Sitagliptin Phosphate (Januvia)) 100 mg DAILY PO 11/30/20 09:00 11/30/20 07:51 DC Linagliptin (Tradjenta) 5 mg DAILY PO 11/30/20 09:00 12/01/20 08:50 Multivitamins/ Minerals (I-Bridget) 1 tab DAILY PO 11/30/20 09:00 12/01/20 08:49 Artificial Tears (Refresh Classic) 1 drop TID OU 11/30/20 09:00 12/01/20 20:10 Levothyroxine Sodium (Synthroid) 25 mcg 0600 PO 12/01/20 06:00 12/02/20 05:44 I have reviewed the current psychotropics carefully including drug interactions. Risk benefit ratio favors no change other than as noted in my dictated progress note. Diagnosis: Problems: (1) Major depressive disorder (2) Mild cognitive impairment (3) Anxiety disorder, unspecified GERRY TAYLOR MD Dec 02, 2020 08:25
[2020-12-02] MEDS: SENNOSIDES/DOCUSATE 8.6/50MG TABLET. PO SCH (08:56)
[2020-12-02] MEDS: APIXABAN 5 MG TABLET. PO SCH ×2 (08:56→21:16)
[2020-12-02] MEDS: ASPIRIN CHEWABLE 81 MG TABLET. PO SCH (08:56)
[2020-12-02] MEDS: HYDROcodone/APAP 5/325MG 1 TAB TABLET PO SCH ×4 (08:56→21:15)
[2020-12-02] MEDS: MULTIVITAMIN I-VITE TABLET. PO SCH (08:56)
[2020-12-02] MEDS: PANTOPRAZOLE 40 MG TABLET. PO SCH (08:56)
[2020-12-02] MEDS: LINAGLIPTIN 5 MG TABLET PO SCH (08:57)
[2020-12-02] MEDS: PARoxetine 20 MG TABLET PO SCH (08:57)
[2020-12-02] MEDS: FUROSEMIDE 40 MG TABLET PO SCH (08:57)
[2020-12-02] MEDS: glipiZIDE 5 MG TABLET PO SCH ×2 (08:57→17:25)
[2020-12-02] MEDS: POLYVINYL ALCOHOL/POVIDONE/PF OPHTH SOLUTION DROPERETTE. OU SCH ×3 (08:58→21:16)
[2020-12-02] MEDS: POTASSIUM CHLORIDE 20 MEQ TABLET.ER. PO SCH (09:00)
--- NOTE | 2020-12-02 12:36 | NUR ---
WEEKLY ACTIVITY THERAPY NOTE Date of Admission: 11/29/20 Date of AT Assessment: TBD Precipitating behaviors that initiated intake and admission: anxious, on the call light, constantly touching other residents, demanding, intrusive Goal aimed: TBD Initial Goal: TBD Weekly progress towards goal: NA Group participation level: 1 min, 2 mod Weekly highlights: arrived on [facility], participated in some exercise Sunday, sang to [employer] music Sunday Behaviors observed: calm, pleasant, appropriate Plan: meet/assess pt Beneficial adaptations: socialization
--- NOTE | 2020-12-02 15:54 | NUR ---
Nurse Notes Patient alert ,oriented. Makes needs known to staff. Take all medication whole. Patient refused Lasix with am medicationswhen asked why" she said I only take it on Sunday,Sunday and Fridays" Patient was encouraged to take medication but continue to refuse.Patient uses sit to stand. No behaviors noted at this time.
[2020-12-02 16:00] VITALS: BP 124/68
[2020-12-02] MEDS: busPIRone 5 MG TABLET. PO SCH (17:25)
--- NOTE | 2020-12-02 22:18 | PDOC ---
Exam Note: Pelon Note: Please also refer to the separate dictated note~for this date of service dictated separately.~Patient seen individually. Discussed the patient with Nursing staff reviewed the chart.~Reviewed interim history and current functioning. Reviewed vital signs,~Labs/ Radiology~and current medications noted below. Continue current treatment with the changes noted in the dictated addendum note Assessment: Vital Signs/I&O: Vital Signs Date Time Temp Pulse Resp B/P (MAP) Pulse Ox O2 Delivery O2 Flow Rate FiO2 12/02/20 21:15 94 12/02/20 18:46 24 Room Air 12/02/20 16:00 98.8 67 124/68 (86) I & O 12/01/20 12/01/20 12/02/20 15:00 23:00 07:00 Intake Total 720 ml 600 ml Balance 720 ml 600 ml Current Medications: Meds: Current Medications Medications (Trade) Dose Ordered Sig/Fam Route PRN Reason Start Time Stop Time Status Last Admin Dose Admin Acetaminophen (Tylenol) 650 mg PRN Q6HRS PRN PO MILD PAIN / TEMP > 100.3'F 11/29/20 21:45 Multi-Ingredient Ointment (Analgesic [place]) 1 rena PRN QID PRN TP MUSCLE PAIN 11/29/20 21:45 Al Hydroxide/Mg Hydroxide (Mylanta Plus Xs) 15 ml PRN AFTMEALHC PRN PO DYSPEPSIA, 2ND CHOICE 11/29/20 21:45 Magnesium Hydroxide (Milk Of Magnesia) 2,400 mg PRN QHS PRN PO CONSTIPATION 11/29/20 21:45 Alprazolam (Xanax) 0.125 mg PRN Q6HRS PRN PO ANXIETY / AGITATION 11/29/20 22:00 Paroxetine HCl (Paxil) 20 mg DAILY PO 11/30/20 09:00 12/02/20 12:58 DC 12/02/20 08:57 Apixaban (Eliquis) 5 mg BID PO 11/30/20 09:00 12/02/20 21:16 Aspirin (Aspirin Chewable) 81 mg DAILY PO 11/30/20 09:00 12/02/20 08:56 Calcium Carbonate/ Glycine (Tums) 500 mg PRN Q6HRS PRN PO INDIGESTION, 1ST CHOICE 11/30/20 07:45 12/01/20 12:46 Diclofenac Sodium (Voltaren) 1 rena PRN Q6HRS PRN TP pain L hip 11/30/20 07:45 Diltiazem HCl (Cardizem 24hr Cd) 120 mg DAILY PO 11/30/20 09:00 12/02/20 08:57 Furosemide (Lasix) 40 mg DAILY PO 11/30/20 09:00 12/02/20 08:57 Glipizide (Glucotrol) 5 mg BIDWMEALS PO 11/30/20 08:00 12/02/20 17:25 Acetaminophen/ Hydrocodone Bitart (Lortab 5/325) 1.5 tab QID PO 11/30/20 09:00 12/02/20 21:15 Levothyroxine Sodium (Synthroid) 25 mcg DAILYAC PO 11/30/20 08:00 11/30/20 14:15 DC 11/30/20 08:12 Pantoprazole Sodium (Protonix) 40 mg DAILY PO 11/30/20 09:00 12/02/20 08:56 Potassium Chloride (Klor-Con) 20 meq DAILY PO 11/30/20 09:00 12/02/20 09:00 Senna/Docusate Sodium (Senna Plus) 2 tab DAILY PO 11/30/20 09:00 12/02/20 08:56 Non-Formulary Medication (Carboxymethylcellulose Sodium (Refresh Tears)) 1 drp TID OP 11/30/20 09:00 11/30/20 07:55 DC Non-Formulary Medication (Multivitamin (Multivitamins)) 1 each DAILY PO 11/30/20 09:00 11/30/20 07:55 DC Non-Formulary Medication (Sitagliptin Phosphate (Januvia)) 100 mg DAILY PO 11/30/20 09:00 11/30/20 07:51 DC Linagliptin (Tradjenta) 5 mg DAILY PO 11/30/20 09:00 12/02/20 08:57 Multivitamins/ Minerals (I-Bridget) 1 tab DAILY PO 11/30/20 09:00 12/02/20 08:56 Artificial Tears (Refresh Classic) 1 drop TID OU 11/30/20 09:00 12/02/20 21:16 Levothyroxine Sodium (Synthroid) 25 mcg 0600 PO 12/01/20 06:00 12/02/20 05:44 Sertraline HCl (Zoloft) 50 mg DAILY PO 12/03/20 09:00 Buspirone HCl (Buspar) 5 mg 0900,1700 PO 12/02/20 17:00 12/02/20 17:25 Current Medications Medications (Trade) Dose Ordered Sig/Fam Route PRN Reason Start Time Stop Time Status Last Admin Dose Admin Buspirone HCl (Buspar) 5 mg 0900,1700 PO 12/02/20 17:00 12/02/20 17:25 I have reviewed the current psychotropics carefully including drug interactions. Risk benefit ratio favors no change other than as noted in my dictated progress note. Diagnosis: Problems: (1) Major depressive disorder (2) Mild cognitive impairment (3) Anxiety disorder, unspecified GERRY TAYLOR MD Dec 02, 2020 22:18
--- NOTE | 2020-12-03 02:21 | NUR ---
Last evening pt propelled herself in WC on the unit before going to bed. She took meds whole without difficulty and has been sleeping.
[2020-12-03] MEDS: LEVOTHYROXINE 25 MCG TABLET. PO SCH (06:12)
[2020-12-03 06:34] VITALS: BP 135/79
[2020-12-03] MEDS: POTASSIUM CHLORIDE 20 MEQ TABLET.ER. PO SCH (08:14)
[2020-12-03] MEDS: glipiZIDE 5 MG TABLET PO SCH ×2 (08:14→16:05)
[2020-12-03] MEDS: busPIRone 5 MG TABLET. PO SCH ×2 (08:14→16:05)
[2020-12-03] MEDS: FUROSEMIDE 40 MG TABLET PO SCH (08:14)
[2020-12-03] MEDS: LINAGLIPTIN 5 MG TABLET PO SCH (08:14)
[2020-12-03] MEDS: APIXABAN 5 MG TABLET. PO SCH ×2 (08:14→20:42)
[2020-12-03] MEDS: ASPIRIN CHEWABLE 81 MG TABLET. PO SCH (08:14)
[2020-12-03] MEDS: PANTOPRAZOLE 40 MG TABLET. PO SCH (08:15)
[2020-12-03] MEDS: SENNOSIDES/DOCUSATE 8.6/50MG TABLET. PO SCH (08:15)
[2020-12-03] MEDS: SERTRALINE 25 MG TABLET. PO SCH (08:16)
[2020-12-03] MEDS: HYDROcodone/APAP 5/325MG 1 TAB TABLET PO SCH ×4 (08:16→20:43)
[2020-12-03] MEDS: POLYVINYL ALCOHOL/POVIDONE/PF OPHTH SOLUTION DROPERETTE. OU SCH ×3 (08:16→20:44)
[2020-12-03] MEDS: MULTIVITAMIN I-VITE TABLET. PO SCH (08:16)
--- NOTE | 2020-12-03 10:28 | TX PLAN ---
Interdisciplinary Tx Plan Admission Information Nov 29, 2020 at 21:24 Legal Status (on Admission): Voluntary DPOA/Guardian Name: Gdtr/DPOA-Seda Leatha Contact Other Contact Name: SHELDON Loja Other Contact Verified Code Status: DNR Allergies: Coded Allergies: Penicillins (Verified Allergy, Unknown, 11/29/20) Hhezzcu-Yff-Ugh Reductase Inhibitor (Verified Allergy, Unknown, 11/29/20) Uncoded Allergies: bees (Allergy, Unknown, 11/29/20) dust (Allergy, Unknown, 11/29/20) Diagnoses Primary Diagnosis: (1) Major depressive disorder (2) Mild cognitive impairment (3) Anxiety disorder, unspecified Reasons for Admission: Relation/conflict, Agitated, Angry, Anxiety/Panic, Confusion/Disoriented Problem in Patient's Words: Per Edita/Seda GARCIA, pt's behaivors are more than likely some of her personality. She seems to have conflictual problems with others. She has always been somewhat hateful, mean, and negative. She had a stroke about 1 1/2 years ago and her short term memory has really been effected. Additional Admission Comments: Per intake record, other residents are angry at her, she is anxious and uses the call light often, constantly touching another resident, enters others rooms, seeking help from peers, demanding, and invasive. Problems Active Problems: Agitation, confusion, anxiety Inactive Problems: None noted at this time. Pt Strengths/Limitations Ability for [place]: Poor Cognitive Functioning/Ability: Poor Communication Skills/Ability: Fair Financial Resources: Fair Insight/Judgement: Poor Intellectual Ability: Fair Physical Health: Poor Social Skills: Fair Stability in Family: Fair Stability in School/Work: Fair Verbal Skills: Fair Discharge Criteria Discharge Criteria: Adequate arrangements @DC, Verbal commit med comply, Improved behavior, Improved mood/thought Other Discharge Comments: None noted at this time. Preliminary Discharge Plan Preliminary DC Plan: Current Living Arrange. Special Precautions Special Precautions: Agitation/Assault Fall Risk: Moderate Initial D/C Plan Pt plan is to return to [facility]. Identified Discharge Needs: None noted at this time. Currently Utilized Resources Currently Utilized Resources/P: PCP-Dr. Mike Magallon/JOSE-Seda Zhang Facility-[facility], Contact-SHELDON Loja Referrals Community Resources: None noted at this time. Identified Problems/Hx/Goals Objectives/Short-Term Goals Short Term Goals: Control abnormal behavior, Dec. Anxiety/Panic, Dec. Symp. Depression, Medication Stabilization, Monitor Med Effects, Promote Coping Skill Short Term Goals in Patient's: For medications to get stabilized and monitored so as to decreas anxiety and depression symptoms. Interventions/Frequency Staff Interventions/Frequency&: Psychiatry to assess pt three times per week for medication management. Nursing to assess behaviors, monitor medications, and complete 15 minute checks daily. Social work to see pt at least two times weekly to aid in return to placement. Activities to encourage pt to participate in group activities daily. 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 Education: Pt graduated high school and earned a bachelor's degree in social work. Community Follow-up PCP Community Provider/Family Inpu: Naun/Seda GARCIA, aware of pt hospitalization and is available for further information as needed. Treatment Plan Explained Patient/Pediatric Ophthalmologist had this treatment plan explained to him/her as indicated by the signature below and has been given the opportunity to ask questions and make suggestions: Date: Patient/Pediatric Ophthalmologist Signature: Additional Comments Treatment plan completed on 12/02/20 and entered today, 12/03/20. NAN FORD Dec 03, 2020 10:27
--- NOTE | 2020-12-03 11:07 | NUR ---
SHELDON attempted to call SHELDON Loja at [facility]. Purvi unavailable so SHELDON left providing update on pt progress. SHELDON will make contact with facility next week. Also, SHELDON attempted to contact with Gdtr/DPKELSI, Seda. SHELDON, also, had to leave ; reported same as above. Seda is scheduled to visit pt on Sunday. SHELDON will follow up with facility and family next week.
--- NOTE | 2020-12-03 14:26 | NUR ---
Pt increasing in attention seeking behaviors; hitting call light multiple times to go to the bathroom after just completing, undoing the velcro on her clean brief and stating CNAs "didn't put it on me right," becoming limp and floppy in the [id number] where the harness is unable to fit correctly on her and necessitating a kev lift for transfers, and requesting brief changes despite a clean/dry brief. She is compliant with whole medications. No SI/HI behaviors notes. She is A&Ox4. She had no c/o pain in the morning (morning Hydrocodone held) but afternoon dose was administered d/t c/o pain in her hips that she was unable to rate on a 1-10 scale. Currently she is back in bed and napping. Plan of care continues, will pass to next shift.
--- NOTE | 2020-12-03 15:00 | NUR ---
Per nursing report, pt was refusing scheduled Lasix previous day stating she only takes the medication Sunday, Sunday, Sunday. This nurse performed a review of medication orders provided by [facility] printed on 11/26/20. Per orders, pt has Lasix 40 mg PO ordered since 03/21/20. Instructions are 1 tablet "in the morning." Instructions does not specify if the medication is to be administered on certain days of the week. This nurse attempted to contact [facility] to discuss further with nursing staff but phone call was not answered by staff. Will attempt again.
--- NOTE | 2020-12-03 16:15 | NUR ---
Pt reporting 10/10 pain in hips, stating "I can't take the pain anymore." Last dose of scheduled Hydrocodone administered approx 2 hours ago. Next dose is not due until approx 1700. PRN Acetaminophen 650 mg PO administered. This nurse commented on the increase in pain since this morning during breakfast when she reported no pain. Pt replied, "That's because afterwords I fell." I asked for clarification, "You fell onto the floor?" She replied, "Yes." I asked how that happened and she said, "The aides let me fall out of the lift." When asked who the aides were she said, "I don't know, I can't remember their names." This nurse requested CNAs Vidya and Yen to come join pt and myself, and when asked if at any point after breakfast did pt call from either the [id number] or kev lift both CNAs replied "no." Upon hearing this pt stated, "Well, I almost fell. And that's why my hips hurt." Of note, CNAs noticed pt becoming limp/floppy while in [id number] and changed to a kev lift for safety. This nurse spoke with pt about the difference between almost falling, and a complete fall which results in landing onto the floor. Pt verbalized understanding.
[2020-12-03 16:17] VITALS: BP 123/76
--- NOTE | 2020-12-03 22:11 | PDOC ---
Exam Note: Pelon Note: Please also refer to the separate dictated note~for this date of service dictated separately.~Patient seen individually. Discussed the patient with Nursing staff reviewed the chart.~Reviewed interim history and current functioning. Reviewed vital signs,~Labs/ Radiology~and current medications noted below. Continue current treatment with the changes noted in the dictated addendum note Assessment: Vital Signs/I&O: Vital Signs Date Time Temp Pulse Resp B/P (MAP) Pulse Ox O2 Delivery O2 Flow Rate FiO2 12/03/20 21:13 16 96 Room Air 12/03/20 16:17 97.1 83 123/76 (92) I & O 12/02/20 12/02/20 12/03/20 15:00 23:00 07:00 Intake Total 720 ml 720 ml Balance 720 ml 720 ml Current Medications: Meds: Current Medications Medications (Trade) Dose Ordered Sig/Fam Route PRN Reason Start Time Stop Time Status Last Admin Dose Admin Acetaminophen (Tylenol) 650 mg PRN Q6HRS PRN PO MILD PAIN / TEMP > 100.3'F 11/29/20 21:45 12/03/20 16:05 Multi-Ingredient Ointment (Analgesic [place]) 1 rena PRN QID PRN TP MUSCLE PAIN 11/29/20 21:45 Al Hydroxide/Mg Hydroxide (Mylanta Plus Xs) 15 ml PRN AFTMEALHC PRN PO DYSPEPSIA, 2ND CHOICE 11/29/20 21:45 Magnesium Hydroxide (Milk Of Magnesia) 2,400 mg PRN QHS PRN PO CONSTIPATION 11/29/20 21:45 Alprazolam (Xanax) 0.125 mg PRN Q6HRS PRN PO ANXIETY / AGITATION 11/29/20 22:00 Paroxetine HCl (Paxil) 20 mg DAILY PO 11/30/20 09:00 12/02/20 12:58 DC 12/02/20 08:57 Apixaban (Eliquis) 5 mg BID PO 11/30/20 09:00 12/03/20 20:42 Aspirin (Aspirin Chewable) 81 mg DAILY PO 11/30/20 09:00 12/03/20 08:14 Calcium Carbonate/ Glycine (Tums) 500 mg PRN Q6HRS PRN PO INDIGESTION, 1ST CHOICE 11/30/20 07:45 12/01/20 12:46 Diclofenac Sodium (Voltaren) 1 rena PRN Q6HRS PRN TP pain L hip 11/30/20 07:45 Diltiazem HCl (Cardizem 24hr Cd) 120 mg DAILY PO 11/30/20 09:00 12/03/20 08:15 Furosemide (Lasix) 40 mg DAILY PO 11/30/20 09:00 12/03/20 08:14 Glipizide (Glucotrol) 5 mg BIDWMEALS PO 11/30/20 08:00 12/03/20 16:05 Acetaminophen/ Hydrocodone Bitart (Lortab 5/325) 1.5 tab QID PO 11/30/20 09:00 12/03/20 20:43 Levothyroxine Sodium (Synthroid) 25 mcg DAILYAC PO 11/30/20 08:00 11/30/20 14:15 DC 11/30/20 08:12 Pantoprazole Sodium (Protonix) 40 mg DAILY PO 11/30/20 09:00 12/03/20 08:15 Potassium Chloride (Klor-Con) 20 meq DAILY PO 11/30/20 09:00 12/03/20 08:14 Senna/Docusate Sodium (Senna Plus) 2 tab DAILY PO 11/30/20 09:00 12/03/20 08:15 Non-Formulary Medication (Carboxymethylcellulose Sodium (Refresh Tears)) 1 drp TID OP 11/30/20 09:00 11/30/20 07:55 DC Non-Formulary Medication (Multivitamin (Multivitamins)) 1 each DAILY PO 11/30/20 09:00 11/30/20 07:55 DC Non-Formulary Medication (Sitagliptin Phosphate (Januvia)) 100 mg DAILY PO 11/30/20 09:00 11/30/20 07:51 DC Linagliptin (Tradjenta) 5 mg DAILY PO 11/30/20 09:00 12/03/20 08:14 Multivitamins/ Minerals (I-Bridget) 1 tab DAILY PO 11/30/20 09:00 12/03/20 08:16 Artificial Tears (Refresh Classic) 1 drop TID OU 11/30/20 09:00 12/03/20 20:44 Levothyroxine Sodium (Synthroid) 25 mcg 0600 PO 12/01/20 06:00 12/03/20 06:12 Sertraline HCl (Zoloft) 50 mg DAILY PO 12/03/20 09:00 12/03/20 08:16 Buspirone HCl (Buspar) 5 mg 0900,1700 PO 12/02/20 17:00 12/03/20 16:05 Current Medications Medications (Trade) Dose Ordered Sig/Fam Route PRN Reason Start Time Stop Time Status Last Admin Dose Admin Sertraline HCl (Zoloft) 50 mg DAILY PO 12/03/20 09:00 12/03/20 08:16 I have reviewed the current psychotropics carefully including drug interactions. Risk benefit ratio favors no change other than as noted in my dictated progress note. Diagnosis: Problems: (1) Major depressive disorder (2) Mild cognitive impairment (3) Anxiety disorder, unspecified GERRY TAYLOR MD Dec 03, 2020 22:11
[2020-12-04 05:30] VITALS: BP 127/71
[2020-12-04] MEDS: PANTOPRAZOLE 40 MG TABLET. PO SCH (05:39)
[2020-12-04] MEDS: LEVOTHYROXINE 25 MCG TABLET. PO SCH (05:39)
[2020-12-04] MEDS: busPIRone 5 MG TABLET. PO SCH ×2 (08:23→18:02)
[2020-12-04] MEDS: glipiZIDE 5 MG TABLET PO SCH ×2 (08:23→18:02)
[2020-12-04] MEDS: MULTIVITAMIN I-VITE TABLET. PO SCH (08:23)
[2020-12-04] MEDS: APIXABAN 5 MG TABLET. PO SCH ×2 (08:24→20:27)
[2020-12-04] MEDS: FUROSEMIDE 40 MG TABLET PO SCH (08:24)
[2020-12-04] MEDS: LINAGLIPTIN 5 MG TABLET PO SCH (08:24)
[2020-12-04] MEDS: ASPIRIN CHEWABLE 81 MG TABLET. PO SCH (08:24)
[2020-12-04] MEDS: SENNOSIDES/DOCUSATE 8.6/50MG TABLET. PO SCH (08:24)
[2020-12-04] MEDS: POTASSIUM CHLORIDE 20 MEQ TABLET.ER. PO SCH (08:24)
[2020-12-04] MEDS: SERTRALINE 25 MG TABLET. PO SCH (08:24)
[2020-12-04] MEDS: HYDROcodone/APAP 5/325MG 1 TAB TABLET PO SCH ×4 (08:25→20:27)
[2020-12-04] MEDS: POLYVINYL ALCOHOL/POVIDONE/PF OPHTH SOLUTION DROPERETTE. OU SCH ×3 (08:25→20:27)
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
[2020-12-04 16:27] VITALS: BP 127/78
--- NOTE | 2020-12-04 21:55 | PDOC ---
Exam Note: Pelon Note: This note is a late entry for 12/02/2020 covers elements not covered in my initial note. Subjective: The patient was seen individually in the morning of 12/02/2020 for a treatment team meeting with Marilyn Randall, Ana Diaz (social services assistant), Mariza, activity therapy and Deysi CHANDLER, discussed and reviewed the chart. Discussed her progress, current psychotropics, reviewed drug interactions, risk-benefit ratio. The patient slept 6-1/4 hours previous night. She takes her medications whole, refused Lasix. She attended 3 groups in the past one week. She remains anxious, restless, constantly moving in her wheelchair, little intrusive. Review of Systems: Ambulation impaired in wheelchair. No CV, , pulmonary, eye system symptoms on review. She is hard of hearing. Mental Status Exam: The patient is oriented to herself and situation. Speech is coherent, has some latency. Abstraction fair. Computation impaired. Langua ge function intact. Attention span short. No suicidal or homicidal ideation. Mood dysphoric and anxious. Laboratory Data: Reviewed. Impression: Major depressive disorder. Anxiety disorder unspecified. Mild cognitive impairment. Plan: Change Paxil 20 mg a day to Zoloft 50 mg a day. Continue Xanax p.r.n. Start BuSpar 5 mg 9 a.m. and 5 p.m. for anxiety. Make further adjustments as clinically indicated. Assessment: Vital Signs/I&O: Vital Signs Date Time Temp Pulse Resp B/P (MAP) Pulse Ox O2 Delivery O2 Flow Rate FiO2 12/04/20 21:01 16 96 12/04/20 18:39 Room Air 12/04/20 16:27 97.6 65 127/78 (94) I & O 12/03/20 12/03/20 12/04/20 15:00 23:00 07:00 Intake Total 560 ml 240 ml 240 ml Balance 560 ml 240 ml 240 ml Current Medications: Meds: Current Medications Medications (Trade) Dose Ordered Sig/Fam Route PRN Reason Start Time Stop Time Status Last Admin Dose Admin Acetaminophen (Tylenol) 650 mg PRN Q6HRS PRN PO MILD PAIN / TEMP > 100.3'F 11/29/20 21:45 12/03/20 16:05 Multi-Ingredient Ointment (Analgesic [place]) 1 rena PRN QID PRN TP MUSCLE PAIN 11/29/20 21:45 Al Hydroxide/Mg Hydroxide (Mylanta Plus Xs) 15 ml PRN AFTMEALHC PRN PO DYSPEPSIA, 2ND CHOICE 11/29/20 21:45 Magnesium Hydroxide (Milk Of Magnesia) 2,400 mg PRN QHS PRN PO CONSTIPATION 11/29/20 21:45 Alprazolam (Xanax) 0.125 mg PRN Q6HRS PRN PO ANXIETY / AGITATION 11/29/20 22:00 Paroxetine HCl (Paxil) 20 mg DAILY PO 11/30/20 09:00 12/02/20 12:58 DC 12/02/20 08:57 Apixaban (Eliquis) 5 mg BID PO 11/30/20 09:00 12/04/20 20:27 Aspirin (Aspirin Chewable) 81 mg DAILY PO 11/30/20 09:00 12/04/20 08:24 Calcium Carbonate/ Glycine (Tums) 500 mg PRN Q6HRS PRN PO INDIGESTION, 1ST CHOICE 11/30/20 07:45 12/01/20 12:46 Diclofenac Sodium (Voltaren) 1 rena PRN Q6HRS PRN TP pain L hip 11/30/20 07:45 Diltiazem HCl (Cardizem 24hr Cd) 120 mg DAILY PO 11/30/20 09:00 12/04/20 08:23 Furosemide (Lasix) 40 mg DAILY PO 11/30/20 09:00 12/04/20 08:24 Glipizide (Glucotrol) 5 mg BIDWMEALS PO 11/30/20 08:00 12/04/20 18:02 Acetaminophen/ Hydrocodone Bitart (Lortab 5/325) 1.5 tab QID PO 11/30/20 09:00 12/04/20 20:27 Levothyroxine Sodium (Synthroid) 25 mcg DAILYAC PO 11/30/20 08:00 11/30/20 14:15 DC 11/30/20 08:12 Pantoprazole Sodium (Protonix) 40 mg DAILY PO 11/30/20 09:00 12/04/20 05:39 Potassium Chloride (Klor-Con) 20 meq DAILY PO 11/30/20 09:00 12/04/20 08:24 Senna/Docusate Sodium (Senna Plus) 2 tab DAILY PO 11/30/20 09:00 12/04/20 08:24 Non-Formulary Medication (Carboxymethylcellulose Sodium (Refresh Tears)) 1 drp TID OP 11/30/20 09:00 11/30/20 07:55 DC Non-Formulary Medication (Multivitamin (Multivitamins)) 1 each DAILY PO 11/30/20 09:00 11/30/20 07:55 DC Non-Formulary Medication (Sitagliptin Phosphate (Januvia)) 100 mg DAILY PO 11/30/20 09:00 11/30/20 07:51 DC Linagliptin (Tradjenta) 5 mg DAILY PO 11/30/20 09:00 12/04/20 08:24 Multivitamins/ Minerals (I-Bridget) 1 tab DAILY PO 11/30/20 09:00 12/04/20 08:23 Artificial Tears (Refresh Classic) 1 drop TID OU 11/30/20 09:00 12/04/20 20:27 Levothyroxine Sodium (Synthroid) 25 mcg 0600 PO 12/01/20 06:00 12/04/20 05:39 Sertraline HCl (Zoloft) 50 mg DAILY PO 12/03/20 09:00 12/04/20 18:36 DC 12/04/20 08:24 Buspirone HCl (Buspar) 5 mg 0900,1700 PO 12/02/20 17:00 12/04/20 18:02 Sertraline HCl (Zoloft) 75 mg DAILY PO 12/05/20 09:00 I have reviewed the current psychotropics carefully including drug interactions. Risk benefit ratio favors no change other than as noted in my dictated progress note. Diagnosis: Problems: (1) Major depressive disorder (2) Mild cognitive impairment (3) Anxiety disorder, unspecified GERRY TAYLOR MD Dec 04, 2020 21:55
--- NOTE | 2020-12-04 22:11 | PDOC ---
Exam Note: Pelon Note: Please also refer to the separate dictated note~for this date of service dictated separately.~Patient seen individually. Discussed the patient with Nursing staff reviewed the chart.~Reviewed interim history and current functioning. Reviewed vital signs,~Labs/ Radiology~and current medications noted below. Continue current treatment with the changes noted in the dictated addendum note Assessment: Vital Signs/I&O: Vital Signs Date Time Temp Pulse Resp B/P (MAP) Pulse Ox O2 Delivery O2 Flow Rate FiO2 12/04/20 21:01 16 96 12/04/20 18:39 Room Air 12/04/20 16:27 97.6 65 127/78 (94) I & O 12/03/20 12/03/20 12/04/20 14:59 22:59 06:59 Intake Total 560 ml 240 ml 240 ml Balance 560 ml 240 ml 240 ml Current Medications: Meds: Current Medications Medications (Trade) Dose Ordered Sig/Fam Route PRN Reason Start Time Stop Time Status Last Admin Dose Admin Acetaminophen (Tylenol) 650 mg PRN Q6HRS PRN PO MILD PAIN / TEMP > 100.3'F 11/29/20 21:45 12/03/20 16:05 Multi-Ingredient Ointment (Analgesic [place]) 1 rena PRN QID PRN TP MUSCLE PAIN 11/29/20 21:45 Al Hydroxide/Mg Hydroxide (Mylanta Plus Xs) 15 ml PRN AFTMEALHC PRN PO DYSPEPSIA, 2ND CHOICE 11/29/20 21:45 Magnesium Hydroxide (Milk Of Magnesia) 2,400 mg PRN QHS PRN PO CONSTIPATION 11/29/20 21:45 Alprazolam (Xanax) 0.125 mg PRN Q6HRS PRN PO ANXIETY / AGITATION 11/29/20 22:00 Paroxetine HCl (Paxil) 20 mg DAILY PO 11/30/20 09:00 12/02/20 12:58 DC 12/02/20 08:57 Apixaban (Eliquis) 5 mg BID PO 11/30/20 09:00 12/04/20 20:27 Aspirin (Aspirin Chewable) 81 mg DAILY PO 11/30/20 09:00 12/04/20 08:24 Calcium Carbonate/ Glycine (Tums) 500 mg PRN Q6HRS PRN PO INDIGESTION, 1ST CHOICE 11/30/20 07:45 12/01/20 12:46 Diclofenac Sodium (Voltaren) 1 rena PRN Q6HRS PRN TP pain L hip 11/30/20 07:45 Diltiazem HCl (Cardizem 24hr Cd) 120 mg DAILY PO 11/30/20 09:00 12/04/20 08:23 Furosemide (Lasix) 40 mg DAILY PO 11/30/20 09:00 12/04/20 08:24 Glipizide (Glucotrol) 5 mg BIDWMEALS PO 11/30/20 08:00 12/04/20 18:02 Acetaminophen/ Hydrocodone Bitart (Lortab 5/325) 1.5 tab QID PO 11/30/20 09:00 12/04/20 20:27 Levothyroxine Sodium (Synthroid) 25 mcg DAILYAC PO 11/30/20 08:00 11/30/20 14:15 DC 11/30/20 08:12 Pantoprazole Sodium (Protonix) 40 mg DAILY PO 11/30/20 09:00 12/04/20 05:39 Potassium Chloride (Klor-Con) 20 meq DAILY PO 11/30/20 09:00 12/04/20 08:24 Senna/Docusate Sodium (Senna Plus) 2 tab DAILY PO 11/30/20 09:00 12/04/20 08:24 Non-Formulary Medication (Carboxymethylcellulose Sodium (Refresh Tears)) 1 drp TID OP 11/30/20 09:00 11/30/20 07:55 DC Non-Formulary Medication (Multivitamin (Multivitamins)) 1 each DAILY PO 11/30/20 09:00 11/30/20 07:55 DC Non-Formulary Medication (Sitagliptin Phosphate (Januvia)) 100 mg DAILY PO 11/30/20 09:00 11/30/20 07:51 DC Linagliptin (Tradjenta) 5 mg DAILY PO 11/30/20 09:00 12/04/20 08:24 Multivitamins/ Minerals (I-Bridget) 1 tab DAILY PO 11/30/20 09:00 12/04/20 08:23 Artificial Tears (Refresh Classic) 1 drop TID OU 11/30/20 09:00 12/04/20 20:27 Levothyroxine Sodium (Synthroid) 25 mcg 0600 PO 12/01/20 06:00 12/04/20 05:39 Sertraline HCl (Zoloft) 50 mg DAILY PO 12/03/20 09:00 12/04/20 18:36 DC 12/04/20 08:24 Buspirone HCl (Buspar) 5 mg 0900,1700 PO 12/02/20 17:00 12/04/20 18:02 Sertraline HCl (Zoloft) 75 mg DAILY PO 12/05/20 09:00 I have reviewed the current psychotropics carefully including drug interactions. Risk benefit ratio favors no change other than as noted in my dictated progress note. Diagnosis: Problems: (1) Major depressive disorder (2) Mild cognitive impairment (3) Anxiety disorder, unspecified GERRY TAYLOR MD Dec 04, 2020 22:11
--- NOTE | 2020-12-05 03:01 | NUR ---
Patient has been pleasant and interacted appropriately with staff and peers while watching TV in the day room. She was compliant with her medications and also had snacks. She denied any nausea and vomiting or pain. Ladonna retired to her room after the game and has been resting in bed,m with eyes closed, breathing normally. She has not shown any aggressiveness or impulsiveness. Will continue to monitor.
[2020-12-05 05:29] VITALS: BP 144/84
[2020-12-05] MEDS: LEVOTHYROXINE 25 MCG TABLET. PO SCH (05:49)
[2020-12-05] MEDS: busPIRone 5 MG TABLET. PO SCH ×2 (08:46→17:35)
[2020-12-05] MEDS: SERTRALINE 25 MG TABLET. PO SCH (08:46)
[2020-12-05] MEDS: glipiZIDE 5 MG TABLET PO SCH ×2 (08:46→17:35)
[2020-12-05] MEDS: POLYVINYL ALCOHOL/POVIDONE/PF OPHTH SOLUTION DROPERETTE. OU SCH ×3 (08:46→21:35)
[2020-12-05] MEDS: APIXABAN 5 MG TABLET. PO SCH ×2 (08:47→21:34)
[2020-12-05] MEDS: POTASSIUM CHLORIDE 20 MEQ TABLET.ER. PO SCH (08:47)
[2020-12-05] MEDS: MULTIVITAMIN I-VITE TABLET. PO SCH (08:47)
[2020-12-05] MEDS: LINAGLIPTIN 5 MG TABLET PO SCH (08:47)
[2020-12-05] MEDS: ASPIRIN CHEWABLE 81 MG TABLET. PO SCH (08:47)
[2020-12-05] MEDS: FUROSEMIDE 40 MG TABLET PO SCH ×2 (08:47→09:00)
[2020-12-05] MEDS: SENNOSIDES/DOCUSATE 8.6/50MG TABLET. PO SCH (08:47)
[2020-12-05] MEDS: PANTOPRAZOLE 40 MG TABLET. PO SCH (08:47)
[2020-12-05] MEDS: HYDROcodone/APAP 5/325MG 1 TAB TABLET PO SCH ×4 (08:48→21:34)
--- NOTE | 2020-12-05 09:18 | PDOC ---
Exam Note: Pelon Note: This note is a late entry for 12/03/2020 covers elements not covered in my initial note. Subjective: The patient was seen individually in the evening of 12/03/2020 with Brittaney CHANDLER, discussed and reviewed the chart. The patient slept 6-1/2 hours previous night. She has been demanding, anxious, attention seeking, frequently wanting to be back on toilet after she just gone to the restroom per nursing staff. She is limp wanting maximum assistance by nursing. She is alert and oriented x4. No complaints of pain in the morning but by the afternoon she complained of pain 10/10 in the hip area. She made statements that she believes the nursing staff let her fall. Nursing staff have checked and corroborated that this is not accurate. Review of Systems: Ambulation impaired in wheelchair. No CV, , pulmonary, eye system symptoms on review. She is hard of hearing. Mental Status Exam: The patient is oriented to herself and situation. Speech is coherent, has some latency. Abstraction fair. Computation impaired. Language function intact. Attention span short. No suicidal or homicidal ideation. Mood dysphoric and anxious. Laboratory Data: Reviewed. Impression: Major depressive disorder. Anxiety disorder unspecified. Mild cognitive impairment. Plan: No change from initial note. Assessment: Vital Signs/I&O: Vital Signs Date Time Temp Pulse Resp B/P (MAP) Pulse Ox O2 Delivery O2 Flow Rate FiO2 12/05/20 08:48 97 12/05/20 08:47 75 144/84 12/05/20 05:29 98.0 16 12/04/20 18:39 Room Air I & O 12/04/20 12/04/20 12/05/20 14:59 22:59 06:59 Intake Total 600 ml 240 ml Balance 600 ml 240 ml Current Medications: Meds: Current Medications Medications (Trade) Dose Ordered Sig/Fam Route PRN Reason Start Time Stop Time Status Last Admin Dose Admin Acetaminophen (Tylenol) 650 mg PRN Q6HRS PRN PO MILD PAIN / TEMP > 100.3'F 11/29/20 21:45 12/03/20 16:05 Multi-Ingredient Ointment (Analgesic [place]) 1 rena PRN QID PRN TP MUSCLE PAIN 11/29/20 21:45 Al Hydroxide/Mg Hydroxide (Mylanta Plus Xs) 15 ml PRN AFTMEALHC PRN PO DYSPEPSIA, 2ND CHOICE 11/29/20 21:45 Magnesium Hydroxide (Milk Of Magnesia) 2,400 mg PRN QHS PRN PO CONSTIPATION 11/29/20 21:45 Alprazolam (Xanax) 0.125 mg PRN Q6HRS PRN PO ANXIETY / AGITATION 11/29/20 22:00 Paroxetine HCl (Paxil) 20 mg DAILY PO 11/30/20 09:00 12/02/20 12:58 DC 12/02/20 08:57 Apixaban (Eliquis) 5 mg BID PO 11/30/20 09:00 12/05/20 08:47 Aspirin (Aspirin Chewable) 81 mg DAILY PO 11/30/20 09:00 12/05/20 08:47 Calcium Carbonate/ Glycine (Tums) 500 mg PRN Q6HRS PRN PO INDIGESTION, 1ST CHOICE 11/30/20 07:45 12/01/20 12:46 Diclofenac Sodium (Voltaren) 1 rena PRN Q6HRS PRN TP pain L hip 11/30/20 07:45 Diltiazem HCl (Cardizem 24hr Cd) 120 mg DAILY PO 11/30/20 09:00 12/05/20 08:47 Furosemide (Lasix) 40 mg DAILY PO 11/30/20 09:00 12/04/20 08:24 Glipizide (Glucotrol) 5 mg BIDWMEALS PO 11/30/20 08:00 12/05/20 08:46 Acetaminophen/ Hydrocodone Bitart (Lortab 5/325) 1.5 tab QID PO 11/30/20 09:00 12/05/20 08:48 Levothyroxine Sodium (Synthroid) 25 mcg DAILYAC PO 11/30/20 08:00 11/30/20 14:15 DC 11/30/20 08:12 Pantoprazole Sodium (Protonix) 40 mg DAILY PO 11/30/20 09:00 12/05/20 08:47 Potassium Chloride (Klor-Con) 20 meq DAILY PO 11/30/20 09:00 12/05/20 08:47 Senna/Docusate Sodium (Senna Plus) 2 tab DAILY PO 11/30/20 09:00 12/05/20 08:47 Non-Formulary Medication (Carboxymethylcellulose Sodium (Refresh Tears)) 1 drp TID OP 11/30/20 09:00 11/30/20 07:55 DC Non-Formulary Medication (Multivitamin (Multivitamins)) 1 each DAILY PO 11/30/20 09:00 11/30/20 07:55 DC Non-Formulary Medication (Sitagliptin Phosphate (Januvia)) 100 mg DAILY PO 11/30/20 09:00 11/30/20 07:51 DC Linagliptin (Tradjenta) 5 mg DAILY PO 11/30/20 09:00 12/05/20 08:47 Multivitamins/ Minerals (I-Bridget) 1 tab DAILY PO 11/30/20 09:00 12/05/20 08:47 Artificial Tears (Refresh Classic) 1 drop TID OU 11/30/20 09:00 12/05/20 08:46 Levothyroxine Sodium (Synthroid) 25 mcg 0600 PO 12/01/20 06:00 12/05/20 05:49 Sertraline HCl (Zoloft) 50 mg DAILY PO 12/03/20 09:00 12/04/20 18:36 DC 12/04/20 08:24 Buspirone HCl (Buspar) 5 mg 0900,1700 PO 12/02/20 17:00 12/05/20 08:46 Sertraline HCl (Zoloft) 75 mg DAILY PO 12/05/20 09:00 12/05/20 08:46 Current Medications Medications (Trade) Dose Ordered Sig/Fam Route PRN Reason Start Time Stop Time Status Last Admin Dose Admin Sertraline HCl (Zoloft) 75 mg DAILY PO 12/05/20 09:00 12/05/20 08:46 I have reviewed the current psychotropics carefully including drug interactions. Risk benefit ratio favors no change other than as noted in my dictated progress note. Diagnosis: Problems: (1) Major depressive disorder (2) Mild cognitive impairment (3) Anxiety disorder, unspecified GERRY TAYLOR MD Dec 05, 2020 09:18
--- NOTE | 2020-12-05 15:55 | NUR ---
Nursing note: Pt in dining room at time of AM med pass and assessment. She is pleasant, med compliant and cooperative. Pt c/o 11/27 low back pain. Scheduled pain meds administered with good effect. Pt has been demanding at times, wanting her meds at exactly the time they are due, but is otherwise pleasant. She has been propelling herself around the unit for most of the shift. Will continue to monitor.
[2020-12-05 16:21] VITALS: BP 130/73
--- NOTE | 2020-12-05 22:08 | PDOC ---
Exam Note: Pelon Note: Please also refer to the separate dictated note~for this date of service dictated separately.~Patient seen individually. Discussed the patient with Nursing staff reviewed the chart.~Reviewed interim history and current functioning. Reviewed vital signs,~Labs/ Radiology~and current medications noted below. Continue current treatment with the changes noted in the dictated addendum note Assessment: Vital Signs/I&O: Vital Signs Date Time Temp Pulse Resp B/P (MAP) Pulse Ox O2 Delivery O2 Flow Rate FiO2 12/05/20 21:34 18 Room Air 12/05/20 17:35 96 12/05/20 16:21 97.8 77 130/73 (92) I & O 12/04/20 12/04/20 12/05/20 15:00 23:00 07:00 Intake Total 600 ml 240 ml Balance 600 ml 240 ml Current Medications: Meds: Current Medications Medications (Trade) Dose Ordered Sig/Fam Route PRN Reason Start Time Stop Time Status Last Admin Dose Admin Acetaminophen (Tylenol) 650 mg PRN Q6HRS PRN PO MILD PAIN / TEMP > 100.3'F 11/29/20 21:45 12/03/20 16:05 Multi-Ingredient Ointment (Analgesic [place]) 1 rena PRN QID PRN TP MUSCLE PAIN 11/29/20 21:45 Al Hydroxide/Mg Hydroxide (Mylanta Plus Xs) 15 ml PRN AFTMEALHC PRN PO DYSPEPSIA, 2ND CHOICE 11/29/20 21:45 Magnesium Hydroxide (Milk Of Magnesia) 2,400 mg PRN QHS PRN PO CONSTIPATION 11/29/20 21:45 Alprazolam (Xanax) 0.125 mg PRN Q6HRS PRN PO ANXIETY / AGITATION 11/29/20 22:00 Paroxetine HCl (Paxil) 20 mg DAILY PO 11/30/20 09:00 12/02/20 12:58 DC 12/02/20 08:57 Apixaban (Eliquis) 5 mg BID PO 11/30/20 09:00 12/05/20 21:34 Aspirin (Aspirin Chewable) 81 mg DAILY PO 11/30/20 09:00 12/05/20 08:47 Calcium Carbonate/ Glycine (Tums) 500 mg PRN Q6HRS PRN PO INDIGESTION, 1ST CHOICE 11/30/20 07:45 12/01/20 12:46 Diclofenac Sodium (Voltaren) 1 rena PRN Q6HRS PRN TP pain L hip 11/30/20 07:45 Diltiazem HCl (Cardizem 24hr Cd) 120 mg DAILY PO 11/30/20 09:00 12/05/20 08:47 Furosemide (Lasix) 40 mg DAILY PO 11/30/20 09:00 12/04/20 08:24 Glipizide (Glucotrol) 5 mg BIDWMEALS PO 11/30/20 08:00 12/05/20 17:35 Acetaminophen/ Hydrocodone Bitart (Lortab 5/325) 1.5 tab QID PO 11/30/20 09:00 12/05/20 21:34 Levothyroxine Sodium (Synthroid) 25 mcg DAILYAC PO 11/30/20 08:00 11/30/20 14:15 DC 11/30/20 08:12 Pantoprazole Sodium (Protonix) 40 mg DAILY PO 11/30/20 09:00 12/05/20 08:47 Potassium Chloride (Klor-Con) 20 meq DAILY PO 11/30/20 09:00 12/05/20 08:47 Senna/Docusate Sodium (Senna Plus) 2 tab DAILY PO 11/30/20 09:00 12/05/20 08:47 Non-Formulary Medication (Carboxymethylcellulose Sodium (Refresh Tears)) 1 drp TID OP 11/30/20 09:00 11/30/20 07:55 DC Non-Formulary Medication (Multivitamin (Multivitamins)) 1 each DAILY PO 11/30/20 09:00 11/30/20 07:55 DC Non-Formulary Medication (Sitagliptin Phosphate (Januvia)) 100 mg DAILY PO 11/30/20 09:00 11/30/20 07:51 DC Linagliptin (Tradjenta) 5 mg DAILY PO 11/30/20 09:00 12/05/20 08:47 Multivitamins/ Minerals (I-Bridget) 1 tab DAILY PO 11/30/20 09:00 12/05/20 08:47 Artificial Tears (Refresh Classic) 1 drop TID OU 11/30/20 09:00 12/05/20 21:35 Levothyroxine Sodium (Synthroid) 25 mcg 0600 PO 12/01/20 06:00 12/05/20 05:49 Sertraline HCl (Zoloft) 50 mg DAILY PO 12/03/20 09:00 12/04/20 18:36 DC 12/04/20 08:24 Buspirone HCl (Buspar) 5 mg 0900,1700 PO 12/02/20 17:00 12/05/20 17:35 Sertraline HCl (Zoloft) 75 mg DAILY PO 12/05/20 09:00 12/05/20 08:46 Current Medications Medications (Trade) Dose Ordered Sig/Fam Route PRN Reason Start Time Stop Time Status Last Admin Dose Admin Sertraline HCl (Zoloft) 75 mg DAILY PO 12/05/20 09:00 12/05/20 08:46 I have reviewed the current psychotropics carefully including drug interactions. Risk benefit ratio favors no change other than as noted in my dictated progress note. Diagnosis: Problems: (1) Major depressive disorder (2) Mild cognitive impairment (3) Anxiety disorder, unspecified GERRY TAYLOR MD Dec 05, 2020 22:08
--- NOTE | 2020-12-06 03:03 | NUR ---
Nursing Note The patient calm and cooperative with meds and assessment. The patient took her medication whole and was pleasant during interactions with this nurse. The patient is currently sleeping in her room.
[2020-12-06 05:49] VITALS: BP 129/84
[2020-12-06] MEDS: LEVOTHYROXINE 25 MCG TABLET. PO SCH (06:00)
[2020-12-06] MEDS: LINAGLIPTIN 5 MG TABLET PO SCH (09:22)
[2020-12-06] MEDS: SENNOSIDES/DOCUSATE 8.6/50MG TABLET. PO SCH (09:22)
[2020-12-06] MEDS: PANTOPRAZOLE 40 MG TABLET. PO SCH (09:22)
[2020-12-06] MEDS: ASPIRIN CHEWABLE 81 MG TABLET. PO SCH (09:23)
[2020-12-06] MEDS: glipiZIDE 5 MG TABLET PO SCH ×2 (09:23→17:34)
[2020-12-06] MEDS: HYDROcodone/APAP 5/325MG 1 TAB TABLET PO SCH ×4 (09:23→20:37)
[2020-12-06] MEDS: busPIRone 5 MG TABLET. PO SCH ×2 (09:23→17:34)
[2020-12-06] MEDS: SERTRALINE 25 MG TABLET. PO SCH (09:23)
[2020-12-06] MEDS: POTASSIUM CHLORIDE 20 MEQ TABLET.ER. PO SCH (09:23)
[2020-12-06] MEDS: POLYVINYL ALCOHOL/POVIDONE/PF OPHTH SOLUTION DROPERETTE. OU SCH ×3 (09:24→21:00)
[2020-12-06] MEDS: APIXABAN 5 MG TABLET. PO SCH ×2 (09:24→20:36)
[2020-12-06] MEDS: MULTIVITAMIN I-VITE TABLET. PO SCH (09:24)
[2020-12-06] MEDS: FUROSEMIDE 40 MG TABLET PO SCH (09:24)
--- NOTE | 2020-12-06 09:26 | PDOC ---
Exam Note: [place]on Note: This note is a late entry for 12/04/2020 covers elements not covered in my initial note. Subjective: The patient was seen individually in the evening of 12/04/2020 with Gibson CHANDLER, discussed and reviewed the chart. The patient slept 5 hours previous night. She remains anxious, attention seeking. She had a near fall from sit to stand with nursing staff and now will be using a [place] lift. She is demanding to go to the toilet a minute or two after she has been there. Review of Systems: Ambulation impaired in wheelchair. No CV, , pulmonary, eye system symptoms on review. She is hard of hearing. Mental Status Exam: The patient is oriented to herself and situation. Speech is coherent, has some latency. Abstraction fair. Computation impaired. Language function intact. Attention span short. No suicidal or homicidal ideation. Mood dysphoric and anxious. Laboratory Data: Reviewed. Impression: Major depressive disorder. Anxiety disorder unspecified. Mild cognitive impairment. Plan: No change from initial note. After the patient has been on Zoloft 50 mg for 2 days, we will increase to 75 mg a day. Rest unchanged. Assessment: Vital Signs/I&O: Vital Signs Date Time Temp Pulse Resp B/P (MAP) Pulse Ox O2 Delivery O2 Flow Rate FiO2 12/06/20 09:23 96 12/06/20 09:23 75 129/84 12/06/20 05:49 97.6 16 12/05/20 22:04 Room Air I & O 12/05/20 12/05/20 12/06/20 15:00 23:00 07:00 Intake Total 600 ml 240 ml 120 ml Balance 600 ml 240 ml 120 ml Labs: Laboratory Tests Test 12/06/20 08:14 Glucose (Fingerstick) 132 mg/dL (70-99) H Current Medications: Meds: Laboratory Tests Test 12/06/20 08:14 Glucose (Fingerstick) 132 mg/dL Current Medications Medications (Trade) Dose Ordered Sig/Fam Route PRN Reason Start Time Stop Time Status Last Admin Dose Admin Acetaminophen (Tylenol) 650 mg PRN Q6HRS PRN PO MILD PAIN / TEMP > 100.3'F 11/29/20 21:45 12/03/20 16:05 Multi-Ingredient Ointment (Analgesic [place]) 1 rena PRN QID PRN TP MUSCLE PAIN 11/29/20 21:45 Al Hydroxide/Mg Hydroxide (Mylanta Plus Xs) 15 ml PRN AFTMEALHC PRN PO DYSPEPSIA, 2ND CHOICE 11/29/20 21:45 Magnesium Hydroxide (Milk Of Magnesia) 2,400 mg PRN QHS PRN PO CONSTIPATION 11/29/20 21:45 Alprazolam (Xanax) 0.125 mg PRN Q6HRS PRN PO ANXIETY / AGITATION 11/29/20 22:00 Paroxetine HCl (Paxil) 20 mg DAILY PO 11/30/20 09:00 12/02/20 12:58 DC 12/02/20 08:57 Apixaban (Eliquis) 5 mg BID PO 11/30/20 09:00 12/06/20 09:24 Aspirin (Aspirin Chewable) 81 mg DAILY PO 11/30/20 09:00 12/06/20 09:23 Calcium Carbonate/ Glycine (Tums) 500 mg PRN Q6HRS PRN PO INDIGESTION, 1ST CHOICE 11/30/20 07:45 12/01/20 12:46 Diclofenac Sodium (Voltaren) 1 rena PRN Q6HRS PRN TP pain L hip 11/30/20 07:45 Diltiazem HCl (Cardizem 24hr Cd) 120 mg DAILY PO 11/30/20 09:00 12/06/20 09:23 Furosemide (Lasix) 40 mg DAILY PO 11/30/20 09:00 12/06/20 09:24 Glipizide (Glucotrol) 5 mg BIDWMEALS PO 11/30/20 08:00 12/06/20 09:23 Acetaminophen/ Hydrocodone Bitart (Lortab 5/325) 1.5 tab QID PO 11/30/20 09:00 12/06/20 09:23 Levothyroxine Sodium (Synthroid) 25 mcg DAILYAC PO 11/30/20 08:00 11/30/20 14:15 DC 11/30/20 08:12 Pantoprazole Sodium (Protonix) 40 mg DAILY PO 11/30/20 09:00 12/06/20 09:22 Potassium Chloride (Klor-Con) 20 meq DAILY PO 11/30/20 09:00 12/06/20 09:23 Senna/Docusate Sodium (Senna Plus) 2 tab DAILY PO 11/30/20 09:00 12/06/20 09:22 Non-Formulary Medication (Carboxymethylcellulose Sodium (Refresh Tears)) 1 drp TID OP 11/30/20 09:00 11/30/20 07:55 DC Non-Formulary Medication (Multivitamin (Multivitamins)) 1 each DAILY PO 11/30/20 09:00 11/30/20 07:55 DC Non-Formulary Medication (Sitagliptin Phosphate (Januvia)) 100 mg DAILY PO 11/30/20 09:00 11/30/20 07:51 DC Linagliptin (Tradjenta) 5 mg DAILY PO 11/30/20 09:00 12/06/20 09:22 Multivitamins/ Minerals (I-Bridget) 1 tab DAILY PO 11/30/20 09:00 12/06/20 09:24 Artificial Tears (Refresh Classic) 1 drop TID OU 11/30/20 09:00 12/06/20 09:24 Levothyroxine Sodium (Synthroid) 25 mcg 0600 PO 12/01/20 06:00 12/06/20 06:00 Sertraline HCl (Zoloft) 50 mg DAILY PO 12/03/20 09:00 12/04/20 18:36 DC 12/04/20 08:24 Buspirone HCl (Buspar) 5 mg 0900,1700 PO 12/02/20 17:00 12/06/20 09:23 Sertraline HCl (Zoloft) 75 mg DAILY PO 12/05/20 09:00 12/06/20 09:23 I have reviewed the current psychotropics carefully including drug interactions. Risk benefit ratio favors no change other than as noted in my dictated progress note. Diagnosis: Problems: (1) Major depressive disorder (2) Mild cognitive impairment (3) Anxiety disorder, unspecified GERRY TAYLOR MD Dec 06, 2020 09:26
--- NOTE | 2020-12-06 09:52 | PDOC ---
Exam Note: [place]on Note: This note is a late entry for 12/05/2020 covers elements not covered in my initial note. Subjective: The patient was seen individually in the evening of 12/05/2020 with Yasmine CHANDLER, discussed and reviewed the chart. The patient slept 7-1/2 hours previous night. She has done well, somewhat demanding, attention seeking, demanding her 1 p.m. meds. I met with her in the corridor outside her room. She talked about her grand-daughter visiting her. Her granddaughter was overtly tired during the visit and the patient states she questioned her. Her granddaughter is working several jobs including at a custodial and at a restaurant till 3 a.m. in the morning. The patient states she is concerned because the granddaughters daughter is going to college and the younger 2 boys are in high school and her the less I say about him the better. Review of Systems: Ambulation impaired in wheelchair. No CV, , pulmonary, eye system symptoms on review. She is hard of hearing. I had to talk loudly into her right ear. Mental Status Exam: The patient is oriented to herself and situation. Speech is coherent, has some latency. Abstraction fair. Computation impaired. Language function intact. Attention span short. No suicidal or homicidal ideation. Mood dysphoric and anxious. Laboratory Data: Reviewed. Impression: Major depressive disorder. Anxiety disorder unspecified. Mild cognitive impairment. Plan: No change from initial note. We have increased Zoloft to 75 mg a day given some of her ongoing mood and anxiety symptoms. Assessment: Vital Signs/I&O: Vital Signs Date Time Temp Pulse Resp B/P (MAP) Pulse Ox O2 Delivery O2 Flow Rate FiO2 12/06/20 09:23 96 12/06/20 09:23 75 129/84 12/06/20 05:49 97.6 16 12/05/20 22:04 Room Air I & O 12/05/20 12/05/20 12/06/20 15:00 23:00 07:00 Intake Total 600 ml 240 ml 120 ml Balance 600 ml 240 ml 120 ml Labs: Laboratory Tests Test 12/06/20 08:14 Glucose (Fingerstick) 132 mg/dL (70-99) H Current Medications: Meds: Laboratory Tests Test 12/06/20 08:14 Glucose (Fingerstick) 132 mg/dL Current Medications Medications (Trade) Dose Ordered Sig/Fam Route PRN Reason Start Time Stop Time Status Last Admin Dose Admin Acetaminophen (Tylenol) 650 mg PRN Q6HRS PRN PO MILD PAIN / TEMP > 100.3'F 11/29/20 21:45 12/03/20 16:05 Multi-Ingredient Ointment (Analgesic [place]) 1 rena PRN QID PRN TP MUSCLE PAIN 11/29/20 21:45 Al Hydroxide/Mg Hydroxide (Mylanta Plus Xs) 15 ml PRN AFTMEALHC PRN PO DYSPEPSIA, 2ND CHOICE 11/29/20 21:45 Magnesium Hydroxide (Milk Of Magnesia) 2,400 mg PRN QHS PRN PO CONSTIPATION 11/29/20 21:45 Alprazolam (Xanax) 0.125 mg PRN Q6HRS PRN PO ANXIETY / AGITATION 11/29/20 22:00 Paroxetine HCl (Paxil) 20 mg DAILY PO 11/30/20 09:00 12/02/20 12:58 DC 12/02/20 08:57 Apixaban (Eliquis) 5 mg BID PO 11/30/20 09:00 12/06/20 09:24 Aspirin (Aspirin Chewable) 81 mg DAILY PO 11/30/20 09:00 12/06/20 09:23 Calcium Carbonate/ Glycine (Tums) 500 mg PRN Q6HRS PRN PO INDIGESTION, 1ST CHOICE 11/30/20 07:45 12/01/20 12:46 Diclofenac Sodium (Voltaren) 1 rena PRN Q6HRS PRN TP pain L hip 11/30/20 07:45 Diltiazem HCl (Cardizem 24hr Cd) 120 mg DAILY PO 11/30/20 09:00 12/06/20 09:23 Furosemide (Lasix) 40 mg DAILY PO 11/30/20 09:00 12/06/20 09:24 Glipizide (Glucotrol) 5 mg BIDWMEALS PO 11/30/20 08:00 12/06/20 09:23 Acetaminophen/ Hydrocodone Bitart (Lortab 5/325) 1.5 tab QID PO 11/30/20 09:00 12/06/20 09:23 Levothyroxine Sodium (Synthroid) 25 mcg DAILYAC PO 11/30/20 08:00 11/30/20 14:15 DC 11/30/20 08:12 Pantoprazole Sodium (Protonix) 40 mg DAILY PO 11/30/20 09:00 12/06/20 09:22 Potassium Chloride (Klor-Con) 20 meq DAILY PO 11/30/20 09:00 12/06/20 09:23 Senna/Docusate Sodium (Senna Plus) 2 tab DAILY PO 11/30/20 09:00 12/06/20 09:22 Non-Formulary Medication (Carboxymethylcellulose Sodium (Refresh Tears)) 1 drp TID OP 11/30/20 09:00 11/30/20 07:55 DC Non-Formulary Medication (Multivitamin (Multivitamins)) 1 each DAILY PO 11/30/20 09:00 11/30/20 07:55 DC Non-Formulary Medication (Sitagliptin Phosphate (Januvia)) 100 mg DAILY PO 11/30/20 09:00 11/30/20 07:51 DC Linagliptin (Tradjenta) 5 mg DAILY PO 11/30/20 09:00 12/06/20 09:22 Multivitamins/ Minerals (I-Bridget) 1 tab DAILY PO 11/30/20 09:00 12/06/20 09:24 Artificial Tears (Refresh Classic) 1 drop TID OU 11/30/20 09:00 12/06/20 09:24 Levothyroxine Sodium (Synthroid) 25 mcg 0600 PO 12/01/20 06:00 12/06/20 06:00 Sertraline HCl (Zoloft) 50 mg DAILY PO 12/03/20 09:00 12/04/20 18:36 DC 12/04/20 08:24 Buspirone HCl (Buspar) 5 mg 0900,1700 PO 12/02/20 17:00 12/06/20 09:23 Sertraline HCl (Zoloft) 75 mg DAILY PO 12/05/20 09:00 12/06/20 09:23 I have reviewed the current psychotropics carefully including drug interactions. Risk benefit ratio favors no change other than as noted in my dictated progress note. Diagnosis: Problems: (1) Major depressive disorder (2) Mild cognitive impairment (3) Anxiety disorder, unspecified GERRY TAYLOR MD Dec 06, 2020 09:52
--- NOTE | 2020-12-06 13:39 | NUR ---
Nursing note: Pt in her room at time of AM med pass and assessment. She is pleasant, med compliant and cooperative. Pt c/o 12/28 low back pain. Scheduled pain meds administered. She has spent time in her room and is currently sitting on the [place] for group. Will continue to monitor.
[2020-12-06 16:22] VITALS: BP 118/58
--- NOTE | 2020-12-06 22:20 | PDOC ---
Exam Note: [place]on Note: Please also refer to the separate dictated note~for this date of service dictated separately.~Patient seen individually. Discussed the patient with Nursing staff reviewed the chart.~Reviewed interim history and current functioning. Reviewed vital signs,~Labs/ Radiology~and current medications noted below. Continue current treatment with the changes noted in the dictated addendum note Assessment: Vital Signs/I&O: Vital Signs Date Time Temp Pulse Resp B/P (MAP) Pulse Ox O2 Delivery O2 Flow Rate FiO2 12/06/20 21:07 16 96 12/06/20 20:37 Room Air 12/06/20 16:22 97.7 72 118/58 (78) I & O 12/05/20 12/05/20 12/06/20 14:59 22:59 06:59 Intake Total 600 ml 240 ml 120 ml Balance 600 ml 240 ml 120 ml Labs: Laboratory Tests Test 12/06/20 08:14 12/06/20 19:41 Glucose (Fingerstick) 132 mg/dL (70-99) H 130 mg/dL (70-99) H Current Medications: Meds: Laboratory Tests Test 12/06/20 08:14 12/06/20 19:41 Glucose (Fingerstick) 132 mg/dL 130 mg/dL Current Medications Medications (Trade) Dose Ordered Sig/Fam Route PRN Reason Start Time Stop Time Status Last Admin Dose Admin Acetaminophen (Tylenol) 650 mg PRN Q6HRS PRN PO MILD PAIN / TEMP > 100.3'F 11/29/20 21:45 12/03/20 16:05 Multi-Ingredient Ointment (Analgesic [place]) 1 rena PRN QID PRN TP MUSCLE PAIN 11/29/20 21:45 Al Hydroxide/Mg Hydroxide (Mylanta Plus Xs) 15 ml PRN AFTMEALHC PRN PO DYSPEPSIA, 2ND CHOICE 11/29/20 21:45 Magnesium Hydroxide (Milk Of Magnesia) 2,400 mg PRN QHS PRN PO CONSTIPATION 11/29/20 21:45 Alprazolam (Xanax) 0.125 mg PRN Q6HRS PRN PO ANXIETY / AGITATION 11/29/20 22:00 Paroxetine HCl (Paxil) 20 mg DAILY PO 11/30/20 09:00 12/02/20 12:58 DC 12/02/20 08:57 Apixaban (Eliquis) 5 mg BID PO 11/30/20 09:00 12/06/20 20:36 Aspirin (Aspirin Chewable) 81 mg DAILY PO 11/30/20 09:00 12/06/20 09:23 Calcium Carbonate/ Glycine (Tums) 500 mg PRN Q6HRS PRN PO INDIGESTION, 1ST CHOICE 11/30/20 07:45 12/01/20 12:46 Diclofenac Sodium (Voltaren) 1 rena PRN Q6HRS PRN TP pain L hip 11/30/20 07:45 Diltiazem HCl (Cardizem 24hr Cd) 120 mg DAILY PO 11/30/20 09:00 12/06/20 09:23 Furosemide (Lasix) 40 mg DAILY PO 11/30/20 09:00 12/06/20 09:24 Glipizide (Glucotrol) 5 mg BIDWMEALS PO 11/30/20 08:00 12/06/20 17:34 Acetaminophen/ Hydrocodone Bitart (Lortab 5/325) 1.5 tab QID PO 11/30/20 09:00 12/06/20 20:37 Levothyroxine Sodium (Synthroid) 25 mcg DAILYAC PO 11/30/20 08:00 11/30/20 14:15 DC 11/30/20 08:12 Pantoprazole Sodium (Protonix) 40 mg DAILY PO 11/30/20 09:00 12/06/20 09:22 Potassium Chloride (Klor-Con) 20 meq DAILY PO 11/30/20 09:00 12/06/20 09:23 Senna/Docusate Sodium (Senna Plus) 2 tab DAILY PO 11/30/20 09:00 12/06/20 09:22 Non-Formulary Medication (Carboxymethylcellulose Sodium (Refresh Tears)) 1 drp TID OP 11/30/20 09:00 11/30/20 07:55 DC Non-Formulary Medication (Multivitamin (Multivitamins)) 1 each DAILY PO 11/30/20 09:00 11/30/20 07:55 DC Non-Formulary Medication (Sitagliptin Phosphate (Januvia)) 100 mg DAILY PO 11/30/20 09:00 11/30/20 07:51 DC Linagliptin (Tradjenta) 5 mg DAILY PO 11/30/20 09:00 12/06/20 09:22 Multivitamins/ Minerals (I-Bridget) 1 tab DAILY PO 11/30/20 09:00 12/06/20 09:24 Artificial Tears (Refresh Classic) 1 drop TID OU 11/30/20 09:00 12/06/20 21:00 Levothyroxine Sodium (Synthroid) 25 mcg 0600 PO 12/01/20 06:00 12/06/20 06:00 Sertraline HCl (Zoloft) 50 mg DAILY PO 12/03/20 09:00 12/04/20 18:36 DC 12/04/20 08:24 Buspirone HCl (Buspar) 5 mg 0900,1700 PO 12/02/20 17:00 12/06/20 17:34 Sertraline HCl (Zoloft) 75 mg DAILY PO 12/05/20 09:00 12/06/20 09:23 I have reviewed the current psychotropics carefully including drug interactions. Risk benefit ratio favors no change other than as noted in my dictated progress note. Diagnosis: Problems: (1) Major depressive disorder (2) Mild cognitive impairment (3) Anxiety disorder, unspecified GERRY TAYLOR MD Dec 06, 2020 22:20
--- NOTE | 2020-12-07 04:42 | NUR ---
Patient was in her room at the start of shift but came to the day gomez and interacted with peers and staff, while watching TV. She denied nausea and vomiting and was given her scheduled pain medication with her bedtime medications for which she was compliant. Patient requested to see Dr. Sinha and was informed he will be notified once he came in to do his rounds in the evening. She had a snack and stayed in the TV room till Dr. Sinha visited with her. She watched some TV and then retired to her room. She is currently in bed, resting with eyes closed, breathing normally.
[2020-12-07 05:53] VITALS: BP 124/81
[2020-12-07] MEDS: PANTOPRAZOLE 40 MG TABLET. PO SCH (06:06)
[2020-12-07] MEDS: LEVOTHYROXINE 25 MCG TABLET. PO SCH (06:06)
[2020-12-07] MEDS: MULTIVITAMIN I-VITE TABLET. PO SCH (08:31)
[2020-12-07] MEDS: busPIRone 5 MG TABLET. PO SCH ×2 (08:31→17:32)
[2020-12-07] MEDS: glipiZIDE 5 MG TABLET PO SCH ×2 (08:31→17:33)
[2020-12-07] MEDS: ASPIRIN CHEWABLE 81 MG TABLET. PO SCH (08:31)
[2020-12-07] MEDS: SERTRALINE 25 MG TABLET. PO SCH (08:31)
[2020-12-07] MEDS: POTASSIUM CHLORIDE 20 MEQ TABLET.ER. PO SCH (08:31)
[2020-12-07] MEDS: APIXABAN 5 MG TABLET. PO SCH ×2 (08:31→20:46)
[2020-12-07] MEDS: LINAGLIPTIN 5 MG TABLET PO SCH (08:31)
[2020-12-07] MEDS: HYDROcodone/APAP 5/325MG 1 TAB TABLET PO SCH ×4 (08:32→20:46)
[2020-12-07] MEDS: POLYVINYL ALCOHOL/POVIDONE/PF OPHTH SOLUTION DROPERETTE. OU SCH ×3 (08:32→20:46)
[2020-12-07] MEDS: SENNOSIDES/DOCUSATE 8.6/50MG TABLET. PO SCH (08:32)
[2020-12-07] MEDS: FUROSEMIDE 40 MG TABLET PO SCH (08:32)
--- NOTE | 2020-12-07 11:26 | NUR ---
Nursing note: Pt in dining room at time of AM med pass and assessment. She is pleasant, med compliant and cooperative. Pt c/o low back pain she rates at 7/10. Scheduled meds were administered with good effect. Pt has no other concerns. She is currently sitting quietly in the gomez. Will continue to monitor.
[2020-12-07 15:43] VITALS: BP 101/65
--- NOTE | 2020-12-07 22:04 | PDOC ---
Exam Note: [place] Note: Please also refer to the separate dictated note~for this date of service dictated separately.~Patient seen individually. Discussed the patient with Nursing staff reviewed the chart.~Reviewed interim history and current functioning. Reviewed vital signs,~Labs/ Radiology~and current medications noted below. Continue current treatment with the changes noted in the dictated addendum note Assessment: Vital Signs/I&O: Vital Signs Date Time Temp Pulse Resp B/P (MAP) Pulse Ox O2 Delivery O2 Flow Rate FiO2 12/07/20 21:16 16 95 Room Air 12/07/20 15:43 96.9 77 101/65 (77) I & O 12/06/20 12/06/20 12/07/20 15:00 23:00 07:00 Intake Total 600 ml 480 ml Balance 600 ml 480 ml Labs: Laboratory Tests Test 12/07/20 07:46 12/07/20 19:15 Glucose (Fingerstick) 127 mg/dL (70-99) H 189 mg/dL (70-99) H Current Medications: Meds: Laboratory Tests Test 12/07/20 07:46 12/07/20 19:15 Glucose (Fingerstick) 127 mg/dL 189 mg/dL Current Medications Medications (Trade) Dose Ordered Sig/Fam Route PRN Reason Start Time Stop Time Status Last Admin Dose Admin Acetaminophen (Tylenol) 650 mg PRN Q6HRS PRN PO MILD PAIN / TEMP > 100.3'F 11/29/20 21:45 12/03/20 16:05 Multi-Ingredient Ointment (Analgesic [place]) 1 rena PRN QID PRN TP MUSCLE PAIN 11/29/20 21:45 Al Hydroxide/Mg Hydroxide (Mylanta Plus Xs) 15 ml PRN AFTMEALHC PRN PO DYSPEPSIA, 2ND CHOICE 11/29/20 21:45 Magnesium Hydroxide (Milk Of Magnesia) 2,400 mg PRN QHS PRN PO CONSTIPATION 11/29/20 21:45 Alprazolam (Xanax) 0.125 mg PRN Q6HRS PRN PO ANXIETY / AGITATION 11/29/20 22:00 Paroxetine HCl (Paxil) 20 mg DAILY PO 11/30/20 09:00 12/02/20 12:58 DC 12/02/20 08:57 Apixaban (Eliquis) 5 mg BID PO 11/30/20 09:00 12/07/20 20:46 Aspirin (Aspirin Chewable) 81 mg DAILY PO 11/30/20 09:00 12/07/20 08:31 Calcium Carbonate/ Glycine (Tums) 500 mg PRN Q6HRS PRN PO INDIGESTION, 1ST CHOICE 11/30/20 07:45 12/01/20 12:46 Diclofenac Sodium (Voltaren) 1 rena PRN Q6HRS PRN TP pain L hip 11/30/20 07:45 Diltiazem HCl (Cardizem 24hr Cd) 120 mg DAILY PO 11/30/20 09:00 12/07/20 08:31 Furosemide (Lasix) 40 mg DAILY PO 11/30/20 09:00 12/07/20 08:32 Glipizide (Glucotrol) 5 mg BIDWMEALS PO 11/30/20 08:00 12/07/20 17:33 Acetaminophen/ Hydrocodone Bitart (Lortab 5/325) 1.5 tab QID PO 11/30/20 09:00 12/07/20 20:46 Levothyroxine Sodium (Synthroid) 25 mcg DAILYAC PO 11/30/20 08:00 11/30/20 14:15 DC 11/30/20 08:12 Pantoprazole Sodium (Protonix) 40 mg DAILY PO 11/30/20 09:00 12/07/20 06:06 Potassium Chloride (Klor-Con) 20 meq DAILY PO 11/30/20 09:00 12/07/20 08:31 Senna/Docusate Sodium (Senna Plus) 2 tab DAILY PO 11/30/20 09:00 12/06/20 09:22 Non-Formulary Medication (Carboxymethylcellulose Sodium (Refresh Tears)) 1 drp TID OP 11/30/20 09:00 11/30/20 07:55 DC Non-Formulary Medication (Multivitamin (Multivitamins)) 1 each DAILY PO 11/30/20 09:00 11/30/20 07:55 DC Non-Formulary Medication (Sitagliptin Phosphate (Januvia)) 100 mg DAILY PO 11/30/20 09:00 11/30/20 07:51 DC Linagliptin (Tradjenta) 5 mg DAILY PO 11/30/20 09:00 12/07/20 08:31 Multivitamins/ Minerals (I-Bridget) 1 tab DAILY PO 11/30/20 09:00 12/07/20 08:31 Artificial Tears (Refresh Classic) 1 drop TID OU 11/30/20 09:00 12/07/20 20:46 Levothyroxine Sodium (Synthroid) 25 mcg 0600 PO 12/01/20 06:00 12/07/20 06:06 Sertraline HCl (Zoloft) 50 mg DAILY PO 12/03/20 09:00 12/04/20 18:36 DC 12/04/20 08:24 Buspirone HCl (Buspar) 5 mg 0900,1700 PO 12/02/20 17:00 12/07/20 18:33 DC 12/07/20 17:32 Sertraline HCl (Zoloft) 75 mg DAILY PO 12/05/20 09:00 12/07/20 08:31 Buspirone HCl (Buspar) 10 mg 0900,1700 PO 12/08/20 09:00 I have reviewed the current psychotropics carefully including drug interactions. Risk benefit ratio favors no change other than as noted in my dictated progress note. Diagnosis: Problems: (1) Major depressive disorder (2) Mild cognitive impairment (3) Anxiety disorder, unspecified GERRY TAYLOR MD Dec 07, 2020 22:04
[2020-12-08 06:14] VITALS: BP 110/62
[2020-12-08] MEDS: LEVOTHYROXINE 25 MCG TABLET. PO SCH (06:23)
[2020-12-08] MEDS: PANTOPRAZOLE 40 MG TABLET. PO SCH (06:24)
--- NOTE | 2020-12-08 08:42 | PDOC ---
Exam Note: [place]on Note: This note is a late entry for 12/06/2020 covers elements not covered in my initial note. Subjective: The patient was seen individually in the evening of 12/06/2020 with Yasmine CHANDLER, discussed and reviewed the chart. The patient slept 5-1/2 hours previous night. She had a good day, somewhat distractible and is wanting to speak with social service staff to discuss discharge plans. Review of Systems: Ambulation impaired in wheelchair. No CV, , pulmonary, eye system symptoms on review. She is hard of hearing. I had to talk loudly into her right ear. Mental Status Exam: The patient is oriented to herself and situation. Speech is coherent. Abstraction fair. Computation impaired. Language function intact. Attention span somewhat distractible. She is less anxious overall. No suicidal or homicidal ideation. Laboratory Data: Reviewed. Impression: Major depressive disorder. Anxiety disorder unspecified. Mild cognitive impairment. Plan: No change from initial note. Assessment: Vital Signs/I&O: Vital Signs Date Time Temp Pulse Resp B/P (MAP) Pulse Ox O2 Delivery O2 Flow Rate FiO2 12/08/20 06:14 97.8 86 16 110/62 (78) 93 12/07/20 21:16 Room Air I & O 12/07/20 12/07/20 12/08/20 14:59 22:59 06:59 Intake Total 840 ml 360 ml 120 ml Balance 840 ml 360 ml 120 ml Labs: Laboratory Tests Test 12/07/20 19:15 12/08/20 07:43 Glucose (Fingerstick) 189 mg/dL (70-99) H 137 mg/dL (70-99) H Current Medications: Meds: Laboratory Tests Test 12/07/20 19:15 12/08/20 07:43 Glucose (Fingerstick) 189 mg/dL 137 mg/dL Current Medications Medications (Trade) Dose Ordered Sig/Fam Route PRN Reason Start Time Stop Time Status Last Admin Dose Admin Acetaminophen (Tylenol) 650 mg PRN Q6HRS PRN PO MILD PAIN / TEMP > 100.3'F 11/29/20 21:45 12/03/20 16:05 Multi-Ingredient Ointment (Analgesic [place]) 1 rena PRN QID PRN TP MUSCLE PAIN 11/29/20 21:45 Al Hydroxide/Mg Hydroxide (Mylanta Plus Xs) 15 ml PRN AFTMEALHC PRN PO DYSPEPSIA, 2ND CHOICE 11/29/20 21:45 Magnesium Hydroxide (Milk Of Magnesia) 2,400 mg PRN QHS PRN PO CONSTIPATION 11/29/20 21:45 Alprazolam (Xanax) 0.125 mg PRN Q6HRS PRN PO ANXIETY / AGITATION 11/29/20 22:00 Paroxetine HCl (Paxil) 20 mg DAILY PO 11/30/20 09:00 12/02/20 12:58 DC 12/02/20 08:57 Apixaban (Eliquis) 5 mg BID PO 11/30/20 09:00 12/07/20 20:46 Aspirin (Aspirin Chewable) 81 mg DAILY PO 11/30/20 09:00 12/07/20 08:31 Calcium Carbonate/ Glycine (Tums) 500 mg PRN Q6HRS PRN PO INDIGESTION, 1ST CHOICE 11/30/20 07:45 12/01/20 12:46 Diclofenac Sodium (Voltaren) 1 rena PRN Q6HRS PRN TP pain L hip 11/30/20 07:45 Diltiazem HCl (Cardizem 24hr Cd) 120 mg DAILY PO 11/30/20 09:00 12/07/20 08:31 Furosemide (Lasix) 40 mg DAILY PO 11/30/20 09:00 12/07/20 08:32 Glipizide (Glucotrol) 5 mg BIDWMEALS PO 11/30/20 08:00 12/07/20 17:33 Acetaminophen/ Hydrocodone Bitart (Lortab 5/325) 1.5 tab QID PO 11/30/20 09:00 12/07/20 20:46 Levothyroxine Sodium (Synthroid) 25 mcg DAILYAC PO 11/30/20 08:00 11/30/20 14:15 DC 11/30/20 08:12 Pantoprazole Sodium (Protonix) 40 mg DAILY PO 11/30/20 09:00 12/08/20 06:24 Potassium Chloride (Klor-Con) 20 meq DAILY PO 11/30/20 09:00 12/07/20 08:31 Senna/Docusate Sodium (Senna Plus) 2 tab DAILY PO 11/30/20 09:00 12/06/20 09:22 Non-Formulary Medication (Carboxymethylcellulose Sodium (Refresh Tears)) 1 drp TID OP 11/30/20 09:00 11/30/20 07:55 DC Non-Formulary Medication (Multivitamin (Multivitamins)) 1 each DAILY PO 11/30/20 09:00 11/30/20 07:55 DC Non-Formulary Medication (Sitagliptin Phosphate (Januvia)) 100 mg DAILY PO 11/30/20 09:00 11/30/20 07:51 DC Linagliptin (Tradjenta) 5 mg DAILY PO 11/30/20 09:00 12/07/20 08:31 Multivitamins/ Minerals (I-Bridget) 1 tab DAILY PO 11/30/20 09:00 12/07/20 08:31 Artificial Tears (Refresh Classic) 1 drop TID OU 11/30/20 09:00 12/07/20 20:46 Levothyroxine Sodium (Synthroid) 25 mcg 0600 PO 12/01/20 06:00 12/08/20 06:23 Sertraline HCl (Zoloft) 50 mg DAILY PO 12/03/20 09:00 12/04/20 18:36 DC 12/04/20 08:24 Buspirone HCl (Buspar) 5 mg 0900,1700 PO 12/02/20 17:00 12/07/20 18:33 DC 12/07/20 17:32 Sertraline HCl (Zoloft) 75 mg DAILY PO 12/05/20 09:00 12/07/20 08:31 Buspirone HCl (Buspar) 10 mg 0900,1700 PO 12/08/20 09:00 I have reviewed the current psychotropics carefully including drug interactions. Risk benefit ratio favors no change other than as noted in my dictated progress note. Diagnosis: Problems: (1) Major depressive disorder (2) Mild cognitive impairment (3) Anxiety disorder, unspecified GERRY TAYLOR MD Dec 08, 2020 08:42
[2020-12-08] MEDS: POLYVINYL ALCOHOL/POVIDONE/PF OPHTH SOLUTION DROPERETTE. OU SCH ×3 (08:43→20:32)
[2020-12-08] MEDS: glipiZIDE 5 MG TABLET PO SCH ×2 (08:43→17:30)
[2020-12-08] MEDS: APIXABAN 5 MG TABLET. PO SCH ×2 (08:44→20:32)
[2020-12-08] MEDS: MULTIVITAMIN I-VITE TABLET. PO SCH (08:44)
[2020-12-08] MEDS: SERTRALINE 25 MG TABLET. PO SCH (08:44)
[2020-12-08] MEDS: FUROSEMIDE 40 MG TABLET PO SCH (08:45)
[2020-12-08] MEDS: POTASSIUM CHLORIDE 20 MEQ TABLET.ER. PO SCH (08:45)
[2020-12-08] MEDS: busPIRone 10 MG TABLET. PO SCH ×2 (08:45→17:30)
[2020-12-08] MEDS: ASPIRIN CHEWABLE 81 MG TABLET. PO SCH (08:45)
[2020-12-08] MEDS: SENNOSIDES/DOCUSATE 8.6/50MG TABLET. PO SCH (08:45)
[2020-12-08] MEDS: LINAGLIPTIN 5 MG TABLET PO SCH (08:45)
[2020-12-08] MEDS: HYDROcodone/APAP 5/325MG 1 TAB TABLET PO SCH ×4 (08:46→20:33)
--- NOTE | 2020-12-08 09:04 | PDOC ---
Exam Note: Pelon Note: This note is a late entry for 12/07/2020 covers elements not covered in my initial note. Subjective: The patient was seen individually in the evening of 12/07/2020 with Yasmine CHANDLER, discussed and reviewed the chart. The patient slept 6 hours previous night. She is coming out of her room more but less anxious, quite repetitive, obsessive, talking about being woken up at 5 a.m. to come and sit in the dayroom and she resents this, wants to be discharged. I addressed this at length with her. Review of Systems: Ambulation impaired in wheelchair. No CV, , pulmonary, eye system symptoms on review. She is hard of hearing. Mental Status Exam: The patient is oriented to herself and situation. Speech is coherent. Abstraction fair. Computation impaired. Language function intact. Attention span somewhat distractible. She is less anxious overall. No suicidal or homicidal ideation. Laboratory Data: Reviewed. Impression: Major depressive disorder. Anxiety disorder unspecified. Mild cognitive impairment. Plan: No change from initial note. Given her ongoing anxiety we will increase BuSpar from 5 mg b.i.d. to 10 mg b.i.d. Rest unchanged. Assessment: Vital Signs/I&O: Vital Signs Date Time Temp Pulse Resp B/P (MAP) Pulse Ox O2 Delivery O2 Flow Rate FiO2 12/08/20 08:46 16 93 Room Air 12/08/20 08:44 86 110/62 12/08/20 06:14 97.8 I & O 0 12/07/20 12/07/20 12/08/20 15:00 23:00 07:00 Intake Total 840 ml 360 ml 120 ml Balance 840 ml 360 ml 120 ml Labs: Laboratory Tests Test 12/07/20 19:15 12/08/20 07:43 Glucose (Fingerstick) 189 mg/dL (70-99) H 137 mg/dL (70-99) H Current Medications: Meds: Laboratory Tests Test 12/07/20 19:15 12/08/20 07:43 Glucose (Fingerstick) 189 mg/dL 137 mg/dL Current Medications Medications (Trade) Dose Ordered Sig/Fam Route PRN Reason Start Time Stop Time Status Last Admin Dose Admin Acetaminophen (Tylenol) 650 mg PRN Q6HRS PRN PO MILD PAIN / TEMP > 100.3'F 11/29/20 21:45 12/03/20 16:05 Multi-Ingredient Ointment (Analgesic [place]) 1 rena PRN QID PRN TP MUSCLE PAIN 11/29/20 21:45 Al Hydroxide/Mg Hydroxide (Mylanta Plus Xs) 15 ml PRN AFTMEALHC PRN PO DYSPEPSIA, 2ND CHOICE 11/29/20 21:45 Magnesium Hydroxide (Milk Of Magnesia) 2,400 mg PRN QHS PRN PO CONSTIPATION 11/29/20 21:45 Alprazolam (Xanax) 0.125 mg PRN Q6HRS PRN PO ANXIETY / AGITATION 11/29/20 22:00 Paroxetine HCl (Paxil) 20 mg DAILY PO 11/30/20 09:00 12/02/20 12:58 DC 12/02/20 08:57 Apixaban (Eliquis) 5 mg BID PO 11/30/20 09:00 12/08/20 08:44 Aspirin (Aspirin Chewable) 81 mg DAILY PO 11/30/20 09:00 12/08/20 08:45 Calcium Carbonate/ Glycine (Tums) 500 mg PRN Q6HRS PRN PO INDIGESTION, 1ST CHOICE 11/30/20 07:45 12/01/20 12:46 Diclofenac Sodium (Voltaren) 1 rena PRN Q6HRS PRN TP pain L hip 11/30/20 07:45 Diltiazem HCl (Cardizem 24hr Cd) 120 mg DAILY PO 11/30/20 09:00 12/08/20 08:44 Furosemide (Lasix) 40 mg DAILY PO 11/30/20 09:00 12/08/20 08:45 Glipizide (Glucotrol) 5 mg BIDWMEALS PO 11/30/20 08:00 12/08/20 08:43 Acetaminophen/ Hydrocodone Bitart (Lortab 5/325) 1.5 tab QID PO 11/30/20 09:00 12/08/20 08:46 Levothyroxine Sodium (Synthroid) 25 mcg DAILYAC PO 11/30/20 08:00 11/30/20 14:15 DC 11/30/20 08:12 Pantoprazole Sodium (Protonix) 40 mg DAILY PO 11/30/20 09:00 12/08/20 06:24 Potassium Chloride (Klor-Con) 20 meq DAILY PO 11/30/20 09:00 12/08/20 08:45 Senna/Docusate Sodium (Senna Plus) 2 tab DAILY PO 11/30/20 09:00 12/08/20 08:45 Non-Formulary Medication (Carboxymethylcellulose Sodium (Refresh Tears)) 1 drp TID OP 11/30/20 09:00 11/30/20 07:55 DC Non-Formulary Medication (Multivitamin (Multivitamins)) 1 each DAILY PO 11/30/20 09:00 11/30/20 07:55 DC Non-Formulary Medication (Sitagliptin Phosphate (Januvia)) 100 mg DAILY PO 11/30/20 09:00 11/30/20 07:51 DC Linagliptin (Tradjenta) 5 mg DAILY PO 11/30/20 09:00 12/08/20 08:45 Multivitamins/ Minerals (I-Bridget) 1 tab DAILY PO 11/30/20 09:00 12/08/20 08:44 Artificial Tears (Refresh Classic) 1 drop TID OU 11/30/20 09:00 12/08/20 08:43 Levothyroxine Sodium (Synthroid) 25 mcg 0600 PO 12/01/20 06:00 12/08/20 06:23 Sertraline HCl (Zoloft) 50 mg DAILY PO 12/03/20 09:00 12/04/20 18:36 DC 12/04/20 08:24 Buspirone HCl (Buspar) 5 mg 0900,1700 PO 12/02/20 17:00 12/07/20 18:33 DC 12/07/20 17:32 Sertraline HCl (Zoloft) 75 mg DAILY PO 12/05/20 09:00 12/08/20 08:44 Buspirone HCl (Buspar) 10 mg 0900,1700 PO 12/08/20 09:00 12/08/20 08:45 Current Medications Medications (Trade) Dose Ordered Sig/Fam Route PRN Reason Start Time Stop Time Status Last Admin Dose Admin Buspirone HCl (Buspar) 10 mg 0900,1700 PO 12/08/20 09:00 12/08/20 08:45 I have reviewed the current psychotropics carefully including drug interactions. Risk benefit ratio favors no change other than as noted in my dictated progress note. Diagnosis: Problems: (1) Major depressive disorder (2) Mild cognitive impairment (3) Anxiety disorder, unspecified GERRY TAYLOR MD Dec 08, 2020 09:04
--- NOTE | 2020-12-08 12:53 | NUR ---
[facility] Social Work Discharge Planning Form Patient Name SYLVESTER POWER Admit Date: 11/29/20 DISCHARGE PLAN Discharge Destination: [facility] Assessment: No Level II Assessment: No Transportation: Facility will p/u at 1300. Special Instructions/Notes: Please fax signed med list and visit summary. DISCHARGE TO FACILITY Facility: [facility] Address: [address] [place] [address] Contact Name: Purvi PCP: Dr. Mckeon Psychiatrist: Haven
[2020-12-08 15:55] VITALS: BP 111/70
--- NOTE | 2020-12-08 18:30 | NUR ---
Patient has been attention seeking, preoccupied with leaving, and repeatedly asking to see her SW throughout this shift. She has repeatedly asked multiple staff members about seeing SW throughout the morning and continued into the afternoon. She was social with peers at one point playing a card game with 2 other patients. Will continue to monitor and report to oncoming staff.
--- NOTE | 2020-12-08 22:36 | PDOC ---
Exam Note: Pelon Note: Please also refer to the separate dictated note~for this date of service dictated separately.~Patient seen individually. Discussed the patient with Nursing staff reviewed the chart.~Reviewed interim history and current functioning. Reviewed vital signs,~Labs/ Radiology~and current medications noted below. Continue current treatment with the changes noted in the dictated addendum note Assessment: Vital Signs/I&O: Vital Signs Date Time Temp Pulse Resp B/P (MAP) Pulse Ox O2 Delivery O2 Flow Rate FiO2 12/08/20 20:33 Room Air 12/08/20 18:10 18 96 12/08/20 15:55 98.9 66 111/70 (84) I & O 12/07/20 12/07/20 12/08/20 15:00 23:00 07:00 Intake Total 840 ml 360 ml 120 ml Balance 840 ml 360 ml 120 ml Labs: Laboratory Tests Test 12/08/20 07:43 12/08/20 19:10 Glucose (Fingerstick) 137 mg/dL (70-99) H 157 mg/dL (70-99) H Current Medications: Meds: Laboratory Tests Test 12/08/20 07:43 12/08/20 19:10 Glucose (Fingerstick) 137 mg/dL 157 mg/dL Current Medications Medications (Trade) Dose Ordered Sig/Fam Route PRN Reason Start Time Stop Time Status Last Admin Dose Admin Acetaminophen (Tylenol) 650 mg PRN Q6HRS PRN PO MILD PAIN / TEMP > 100.3'F 11/29/20 21:45 12/03/20 16:05 Multi-Ingredient Ointment (Analgesic [place]) 1 rena PRN QID PRN TP MUSCLE PAIN 11/29/20 21:45 Al Hydroxide/Mg Hydroxide (Mylanta Plus Xs) 15 ml PRN AFTMEALHC PRN PO DYSPEPSIA, 2ND CHOICE 11/29/20 21:45 Magnesium Hydroxide (Milk Of Magnesia) 2,400 mg PRN QHS PRN PO CONSTIPATION 11/29/20 21:45 Alprazolam (Xanax) 0.125 mg PRN Q6HRS PRN PO ANXIETY / AGITATION 11/29/20 22:00 Paroxetine HCl (Paxil) 20 mg DAILY PO 11/30/20 09:00 12/02/20 12:58 DC 12/02/20 08:57 Apixaban (Eliquis) 5 mg BID PO 11/30/20 09:00 12/08/20 20:32 Aspirin (Aspirin Chewable) 81 mg DAILY PO 11/30/20 09:00 12/08/20 08:45 Calcium Carbonate/ Glycine (Tums) 500 mg PRN Q6HRS PRN PO INDIGESTION, 1ST CHOICE 11/30/20 07:45 12/01/20 12:46 Diclofenac Sodium (Voltaren) 1 rena PRN Q6HRS PRN TP pain L hip 11/30/20 07:45 Diltiazem HCl (Cardizem 24hr Cd) 120 mg DAILY PO 11/30/20 09:00 12/08/20 08:44 Furosemide (Lasix) 40 mg DAILY PO 11/30/20 09:00 12/08/20 08:45 Glipizide (Glucotrol) 5 mg BIDWMEALS PO 11/30/20 08:00 12/08/20 17:30 Acetaminophen/ Hydrocodone Bitart (Lortab 5/325) 1.5 tab QID PO 11/30/20 09:00 12/08/20 20:33 Levothyroxine Sodium (Synthroid) 25 mcg DAILYAC PO 11/30/20 08:00 11/30/20 14:15 DC 11/30/20 08:12 Pantoprazole Sodium (Protonix) 40 mg DAILY PO 11/30/20 09:00 12/08/20 06:24 Potassium Chloride (Klor-Con) 20 meq DAILY PO 11/30/20 09:00 12/08/20 08:45 Senna/Docusate Sodium (Senna Plus) 2 tab DAILY PO 11/30/20 09:00 12/08/20 08:45 Non-Formulary Medication (Carboxymethylcellulose Sodium (Refresh Tears)) 1 drp TID OP 11/30/20 09:00 11/30/20 07:55 DC Non-Formulary Medication (Multivitamin (Multivitamins)) 1 each DAILY PO 11/30/20 09:00 11/30/20 07:55 DC Non-Formulary Medication (Sitagliptin Phosphate (Januvia)) 100 mg DAILY PO 11/30/20 09:00 11/30/20 07:51 DC Linagliptin (Tradjenta) 5 mg DAILY PO 11/30/20 09:00 12/08/20 08:45 Multivitamins/ Minerals (I-Bridget) 1 tab DAILY PO 11/30/20 09:00 12/08/20 08:44 Artificial Tears (Refresh Classic) 1 drop TID OU 11/30/20 09:00 12/08/20 20:32 Levothyroxine Sodium (Synthroid) 25 mcg 0600 PO 12/01/20 06:00 12/08/20 06:23 Sertraline HCl (Zoloft) 50 mg DAILY PO 12/03/20 09:00 12/04/20 18:36 DC 12/04/20 08:24 Buspirone HCl (Buspar) 5 mg 0900,1700 PO 12/02/20 17:00 12/07/20 18:33 DC 12/07/20 17:32 Sertraline HCl (Zoloft) 75 mg DAILY PO 12/05/20 09:00 12/08/20 08:44 Buspirone HCl (Buspar) 10 mg 0900,1700 PO 12/08/20 09:00 12/08/20 17:30 Current Medications Medications (Trade) Dose Ordered Sig/Fam Route PRN Reason Start Time Stop Time Status Last Admin Dose Admin Buspirone HCl (Buspar) 10 mg 0900,1700 PO 12/08/20 09:00 12/08/20 17:30 I have reviewed the current psychotropics carefully including drug interactions. Risk benefit ratio favors no change other than as noted in my dictated progress note. Diagnosis: Problems: (1) Major depressive disorder (2) Mild cognitive impairment (3) Anxiety disorder, unspecified GERRY TAYLOR MD Dec 08, 2020 22:35
[2020-12-09] MEDS: LEVOTHYROXINE 25 MCG TABLET. PO SCH (05:22)
[2020-12-09 05:58] VITALS: BP 133/76
[2020-12-09] MEDS: APIXABAN 5 MG TABLET. PO SCH ×2 (08:36→20:35)
[2020-12-09] MEDS: LINAGLIPTIN 5 MG TABLET PO SCH (08:36)
[2020-12-09] MEDS: POTASSIUM CHLORIDE 20 MEQ TABLET.ER. PO SCH (08:36)
[2020-12-09] MEDS: SENNOSIDES/DOCUSATE 8.6/50MG TABLET. PO SCH (08:36)
[2020-12-09] MEDS: HYDROcodone/APAP 5/325MG 1 TAB TABLET PO SCH ×4 (08:37→20:37)
[2020-12-09] MEDS: ASPIRIN CHEWABLE 81 MG TABLET. PO SCH (08:37)
[2020-12-09] MEDS: PANTOPRAZOLE 40 MG TABLET. PO SCH (08:37)
[2020-12-09] MEDS: FUROSEMIDE 40 MG TABLET PO SCH (08:38)
[2020-12-09] MEDS: glipiZIDE 5 MG TABLET PO SCH ×2 (08:38→16:55)
[2020-12-09] MEDS: POLYVINYL ALCOHOL/POVIDONE/PF OPHTH SOLUTION DROPERETTE. OU SCH ×3 (08:38→20:35)
[2020-12-09] MEDS: SERTRALINE 25 MG TABLET. PO SCH (08:38)
[2020-12-09] MEDS: busPIRone 10 MG TABLET. PO SCH ×2 (08:38→16:54)
[2020-12-09] MEDS: MULTIVITAMIN I-VITE TABLET. PO SCH (08:38)
--- NOTE | 2020-12-09 12:30 | NUR ---
WEEKLY ACTIVITY THERAPY NOTE Date of Admission: 11/29/20 Date of AT Assessment: 12/01/20 Precipitating behaviors that initiated intake and admission: anxious, on the call light, constantly touching other residents, demanding, intrusive Goal aimed: to increase positive social interactions and engagement Initial Goal: Pt. will participate in all Activity Therapy groups offered. Weekly progress towards goal: did not achieve, 09/27 Group participation level: 1 min, 2 mod, 2 full Weekly highlights: cow videos and exercises , card game Sunday, exercises and sentence starters Sunday, snacks and deck of cards Sunday, shared travel experiences Sunday during songs and states activity Behaviors observed: attention seeking behaviors, hyperverbal Plan: no change to goal Beneficial adaptations: redirection
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
--- NOTE | 2020-12-09 15:59 | NUR ---
Weekly Note: Pt is eating an average of 80% of her meals and sleeping 6.5 hours at night. 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 Pt needs [place] lift for transfers and she often lets staff know how they are doing things wrong. Pt is pleasant with other pts and will interact appropriately with them. She attends group on occasion and is interactive. Pt is scheduled for discharge tomorrow 12/10/20 back to [facility]. SHELDON left vm with Purvi at pt facility to confirm p/u tomorrow at 1300. Awaiting return call. SHELDON also contacted pt JOSE, Seda, and left vm regarding tomorrow d/c. SHELDON left return phone number with both should they need to call back for anything.
[2020-12-09 16:02] VITALS: BP 111/72
--- NOTE | 2020-12-09 18:33 | NUR ---
Patient has been attention seeking, preoccupied with leaving, and repeatedly asking to see her SW throughout this shift. She was social with peers in the afternoon playing a card game with 2 other patients. She was demanding throughout this shift with staff. Will continue to monitor and report to oncoming staff.
--- NOTE | 2020-12-09 22:11 | PDOC ---
Exam Note: Pelon Note: Please also refer to the separate dictated note~for this date of service dictated separately.~Patient seen individually. Discussed the patient with Nursing staff reviewed the chart.~Reviewed interim history and current functioning. Reviewed vital signs,~Labs/ Radiology~and current medications noted below. Continue current treatment with the changes noted in the dictated addendum note Assessment: Vital Signs/I&O: Vital Signs Date Time Temp Pulse Resp B/P (MAP) Pulse Ox O2 Delivery O2 Flow Rate FiO2 12/09/20 21:07 16 97 Room Air 12/09/20 16:02 97.7 70 111/72 (85) I & O 12/08/20 12/08/20 12/09/20 15:00 23:00 07:00 Intake Total 600 ml 240 ml 360 ml Balance 600 ml 240 ml 360 ml Labs: Laboratory Tests Test 12/09/20 07:52 12/09/20 19:19 Glucose (Fingerstick) 133 mg/dL (70-99) H 183 mg/dL (70-99) H Current Medications: Meds: Laboratory Tests Test 12/09/20 07:52 12/09/20 19:19 Glucose (Fingerstick) 133 mg/dL 183 mg/dL Current Medications Medications (Trade) Dose Ordered Sig/Fam Route PRN Reason Start Time Stop Time Status Last Admin Dose Admin Acetaminophen (Tylenol) 650 mg PRN Q6HRS PRN PO MILD PAIN / TEMP > 100.3'F 11/29/20 21:45 12/03/20 16:05 Multi-Ingredient Ointment (Analgesic [place]) 1 rena PRN QID PRN TP MUSCLE PAIN 11/29/20 21:45 Al Hydroxide/Mg Hydroxide (Mylanta Plus Xs) 15 ml PRN AFTMEALHC PRN PO DYSPEPSIA, 2ND CHOICE 11/29/20 21:45 Magnesium Hydroxide (Milk Of Magnesia) 2,400 mg PRN QHS PRN PO CONSTIPATION 11/29/20 21:45 Alprazolam (Xanax) 0.125 mg PRN Q6HRS PRN PO ANXIETY / AGITATION 11/29/20 22:00 Paroxetine HCl (Paxil) 20 mg DAILY PO 11/30/20 09:00 12/02/20 12:58 DC 12/02/20 08:57 Apixaban (Eliquis) 5 mg BID PO 11/30/20 09:00 12/09/20 20:35 Aspirin (Aspirin Chewable) 81 mg DAILY PO 11/30/20 09:00 12/09/20 08:37 Calcium Carbonate/ Glycine (Tums) 500 mg PRN Q6HRS PRN PO INDIGESTION, 1ST CHOICE 11/30/20 07:45 12/01/20 12:46 Diclofenac Sodium (Voltaren) 1 rena PRN Q6HRS PRN TP pain L hip 11/30/20 07:45 Diltiazem HCl (Cardizem 24hr Cd) 120 mg DAILY PO 11/30/20 09:00 12/09/20 08:37 Furosemide (Lasix) 40 mg DAILY PO 11/30/20 09:00 12/09/20 08:38 Glipizide (Glucotrol) 5 mg BIDWMEALS PO 11/30/20 08:00 12/09/20 16:55 Acetaminophen/ Hydrocodone Bitart (Lortab 5/325) 1.5 tab QID PO 11/30/20 09:00 12/09/20 20:37 Levothyroxine Sodium (Synthroid) 25 mcg DAILYAC PO 11/30/20 08:00 11/30/20 14:15 DC 11/30/20 08:12 Pantoprazole Sodium (Protonix) 40 mg DAILY PO 11/30/20 09:00 12/09/20 08:37 Potassium Chloride (Klor-Con) 20 meq DAILY PO 11/30/20 09:00 12/09/20 08:36 Senna/Docusate Sodium (Senna Plus) 2 tab DAILY PO 11/30/20 09:00 12/09/20 08:36 Non-Formulary Medication (Carboxymethylcellulose Sodium (Refresh Tears)) 1 drp TID OP 11/30/20 09:00 11/30/20 07:55 DC Non-Formulary Medication (Multivitamin (Multivitamins)) 1 each DAILY PO 11/30/20 09:00 11/30/20 07:55 DC Non-Formulary Medication (Sitagliptin Phosphate (Januvia)) 100 mg DAILY PO 11/30/20 09:00 11/30/20 07:51 DC Linagliptin (Tradjenta) 5 mg DAILY PO 11/30/20 09:00 12/09/20 08:36 Multivitamins/ Minerals (I-Bridget) 1 tab DAILY PO 11/30/20 09:00 12/09/20 08:38 Artificial Tears (Refresh Classic) 1 drop TID OU 11/30/20 09:00 12/09/20 20:35 Levothyroxine Sodium (Synthroid) 25 mcg 0600 PO 12/01/20 06:00 12/09/20 05:22 Sertraline HCl (Zoloft) 50 mg DAILY PO 12/03/20 09:00 12/04/20 18:36 DC 12/04/20 08:24 Buspirone HCl (Buspar) 5 mg 0900,1700 PO 12/02/20 17:00 12/07/20 18:33 DC 12/07/20 17:32 Sertraline HCl (Zoloft) 75 mg DAILY PO 12/05/20 09:00 12/09/20 08:38 Buspirone HCl (Buspar) 10 mg 0900,1700 PO 12/08/20 09:00 12/09/20 16:54 I have reviewed the current psychotropics carefully including drug interactions. Risk benefit ratio favors no change other than as noted in my dictated progress note. Diagnosis: Problems: (1) Major depressive disorder (2) Mild cognitive impairment (3) Anxiety disorder, unspecified GERRY TAYLOR MD Dec 09, 2020 22:11
--- NOTE | 2020-12-10 02:00 | NUR ---
Patient started the shift in the day gomez playing cards with peers and interacting pleasantly with other peers and staff. She had a snack and denies any pain, nausea or vomiting. Patient was compliant with bedtime medications an was not aggressive or unpleasant to staff. She had a behavioral episode when she demanded to go to her room immediately after taking her meds and was politely requested to be patient until the staff get to her. She stated she was mad and would not answer questions or interacte further. Patient was eventually taken to her room ahere 2 aides and a nurse prepared her for bed. She is currently in bed, resting with eyes closed, breathing normally.
[2020-12-10] MEDS ORDERED: CALC500T31 PO (02:16)
[2020-12-10] MEDS ORDERED: ACET325T9 PO (02:19)
[2020-12-10] MEDS ORDERED: LINA5TAB4 PO (02:20)
[2020-12-10] MEDS ORDERED: MAGN24003 PO (02:21)
[2020-12-10] MEDS ORDERED: MAG-124 PO (02:22)
[2020-12-10] MEDS ORDERED: SERT25TA PO (02:23)
[2020-12-10] MEDS ORDERED: TROL90CR TP (02:23)
[2020-12-10] MEDS ORDERED: BUSP10TA PO (02:25)
[2020-12-10] MEDS: LEVOTHYROXINE 25 MCG TABLET. PO SCH (05:55)
[2020-12-10 06:46] VITALS: BP 125/60
[2020-12-10] MEDS: busPIRone 10 MG TABLET. PO SCH (08:21)
[2020-12-10] MEDS: APIXABAN 5 MG TABLET. PO SCH (08:21)
[2020-12-10] MEDS: glipiZIDE 5 MG TABLET PO SCH (08:21)
[2020-12-10] MEDS: MULTIVITAMIN I-VITE TABLET. PO SCH (08:21)
[2020-12-10] MEDS: POTASSIUM CHLORIDE 20 MEQ TABLET.ER. PO SCH (08:21)
[2020-12-10] MEDS: ASPIRIN CHEWABLE 81 MG TABLET. PO SCH (08:22)
[2020-12-10] MEDS: LINAGLIPTIN 5 MG TABLET PO SCH (08:22)
[2020-12-10] MEDS: SERTRALINE 25 MG TABLET. PO SCH (08:22)
[2020-12-10 08:23] VITALS: BP 125/60
[2020-12-10] MEDS: HYDROcodone/APAP 5/325MG 1 TAB TABLET PO SCH ×2 (08:23→12:41)
[2020-12-10] MEDS: SENNOSIDES/DOCUSATE 8.6/50MG TABLET. PO SCH (08:23)
[2020-12-10] MEDS: POLYVINYL ALCOHOL/POVIDONE/PF OPHTH SOLUTION DROPERETTE. OU SCH (08:24)
[2020-12-10] MEDS: FUROSEMIDE 40 MG TABLET PO SCH (08:24)
[2020-12-10] MEDS: PANTOPRAZOLE 40 MG TABLET. PO SCH (08:24)
--- NOTE | 2020-12-10 09:02 | PDOC ---
Exam Note: [place]on Note: This note is a late entry for 12/08/2020 covers elements not covered in my initial note. Subjective: The patient was seen individually in the evening of 12/08/2020 with Gibson CHANDLER, discussed and reviewed the chart. The patient slept 5-1/2 hours previous night. She has been demanding, anxious. She is unable to do assisted transfer and is on a [place] lift. She is hyperverbal at times. Review of Systems: Gait unsteady in wheelchair. No CV, , pulmonary, eye system symptoms on review. She is hard of hearing. Mental Status Exam: The patient is oriented to herself and situation. She is still obsessed, anxious, repetitively asking about discharge plans. I addressed this with her. Speech is coherent. Abstraction fair. Computation impaired. Language function intact. No suicidal or homicidal ideation. Laboratory Data: Reviewed. Impression: Major depressive disorder. Anxiety disorder unspecified. Mild cognitive impairment. Plan: No change from initial note with possible transition to the intermediate end of this week. Assessment: Vital Signs/I&O: Vital Signs Date Time Temp Pulse Resp B/P (MAP) Pulse Ox O2 Delivery O2 Flow Rate FiO2 12/10/20 08:23 16 Room Air 12/10/20 08:23 72 125/60 12/10/20 06:46 98.0 12/09/20 21:07 97 I & O 12/09/20 12/09/20 12/10/20 15:00 23:00 07:00 Intake Total 600 ml 560 ml Balance 600 ml 560 ml Labs: Laboratory Tests Test 12/09/20 19:19 12/10/20 08:21 Glucose (Fingerstick) 183 mg/dL (70-99) H 139 mg/dL (70-99) H Current Medications: Meds: Laboratory Tests Test 12/09/20 19:19 12/10/20 08:21 Glucose (Fingerstick) 183 mg/dL 139 mg/dL Current Medications Medications (Trade) Dose Ordered Sig/Fam Route PRN Reason Start Time Stop Time Status Last Admin Dose Admin Acetaminophen (Tylenol) 650 mg PRN Q6HRS PRN PO MILD PAIN / TEMP > 100.3'F 11/29/20 21:45 12/03/20 16:05 Multi-Ingredient Ointment (Analgesic [place]) 1 rena PRN QID PRN TP MUSCLE PAIN 11/29/20 21:45 Al Hydroxide/Mg Hydroxide (Mylanta Plus Xs) 15 ml PRN AFTMEALHC PRN PO DYSPEPSIA, 2ND CHOICE 11/29/20 21:45 Magnesium Hydroxide (Milk Of Magnesia) 2,400 mg PRN QHS PRN PO CONSTIPATION 11/29/20 21:45 Alprazolam (Xanax) 0.125 mg PRN Q6HRS PRN PO ANXIETY / AGITATION 11/29/20 22:00 Paroxetine HCl (Paxil) 20 mg DAILY PO 11/30/20 09:00 12/02/20 12:58 DC 12/02/20 08:57 Apixaban (Eliquis) 5 mg BID PO 11/30/20 09:00 12/10/20 08:21 Aspirin (Aspirin Chewable) 81 mg DAILY PO 11/30/20 09:00 12/10/20 08:22 Calcium Carbonate/ Glycine (Tums) 500 mg PRN Q6HRS PRN PO INDIGESTION, 1ST CHOICE 11/30/20 07:45 12/01/20 12:46 Diclofenac Sodium (Voltaren) 1 rena PRN Q6HRS PRN TP pain L hip 11/30/20 07:45 Diltiazem HCl (Cardizem 24hr Cd) 120 mg DAILY PO 11/30/20 09:00 12/10/20 08:23 Furosemide (Lasix) 40 mg DAILY PO 11/30/20 09:00 12/10/20 08:24 Glipizide (Glucotrol) 5 mg BIDWMEALS PO 11/30/20 08:00 12/10/20 08:21 Acetaminophen/ Hydrocodone Bitart (Lortab 5/325) 1.5 tab QID PO 11/30/20 09:00 12/10/20 08:23 Levothyroxine Sodium (Synthroid) 25 mcg DAILYAC PO 11/30/20 08:00 11/30/20 14:15 DC 11/30/20 08:12 Pantoprazole Sodium (Protonix) 40 mg DAILY PO 11/30/20 09:00 12/10/20 08:24 Potassium Chloride (Klor-Con) 20 meq DAILY PO 11/30/20 09:00 12/10/20 08:21 Senna/Docusate Sodium (Senna Plus) 2 tab DAILY PO 11/30/20 09:00 12/10/20 08:23 Non-Formulary Medication (Carboxymethylcellulose Sodium (Refresh Tears)) 1 drp TID OP 11/30/20 09:00 11/30/20 07:55 DC Non-Formulary Medication (Multivitamin (Multivitamins)) 1 each DAILY PO 11/30/20 09:00 11/30/20 07:55 DC Non-Formulary Medication (Sitagliptin Phosphate (Januvia)) 100 mg DAILY PO 11/30/20 09:00 11/30/20 07:51 DC Linagliptin (Tradjenta) 5 mg DAILY PO 11/30/20 09:00 12/10/20 08:22 Multivitamins/ Minerals (I-Bridget) 1 tab DAILY PO 11/30/20 09:00 12/10/20 08:21 Artificial Tears (Refresh Classic) 1 drop TID OU 11/30/20 09:00 12/10/20 08:24 Levothyroxine Sodium (Synthroid) 25 mcg 0600 PO 12/01/20 06:00 12/10/20 05:55 Sertraline HCl (Zoloft) 50 mg DAILY PO 12/03/20 09:00 12/04/20 18:36 DC 12/04/20 08:24 Buspirone HCl (Buspar) 5 mg 0900,1700 PO 12/02/20 17:00 12/07/20 18:33 DC 12/07/20 17:32 Sertraline HCl (Zoloft) 75 mg DAILY PO 12/05/20 09:00 12/10/20 08:22 Buspirone HCl (Buspar) 10 mg 0900,1700 PO 12/08/20 09:00 12/10/20 08:21 I have reviewed the current psychotropics carefully including drug interactions. Risk benefit ratio favors no change other than as noted in my dictated progress note. Diagnosis: Problems: (1) Major depressive disorder (2) Mild cognitive impairment (3) Anxiety disorder, unspecified (4) Impulse control disorder GERRY TAYLOR MD Dec 10, 2020 09:01
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
--- NOTE | 2020-12-10 09:32 | PDOC ---
Exam Note: [place] Note: This note is a late entry for 12/09/2020 covers elements not covered in my initial note. Subjective: The patient was seen individually in the morning of 12/09/2020 for a treatment team meeting with Marilyn Randall, Ana Diaz (social media designer), Mariza, activity therapy and Gibson CHANDLER, discussed and reviewed the chart. The patient slept 7 hours previous night. She remains anxious. She has attended 5 groups in the past one week. She is attention seeking at times. Review of Systems: Impaired ambulation in wheelchair. No CV, , pulmonary, eye system symptoms on review. She is hard of hearing. Mental Status Exam: The patient is oriented to herself and situation. Speech i s coherent. Abstraction fair. Computation impaired. Mood and affect is improved. Language function intact. No suicidal or homicidal ideation. Laboratory Data: Reviewed. Impression: Major depressive disorder. Anxiety disorder unspecified. Mild co gnitive impairment. Plan: No change from initial note. Transition back to detention 12/10. Assessment: Vital Signs/I&O: Vital Signs Date Time Temp Pulse Resp B/P (MAP) Pulse Ox O2 Delivery O2 Flow Rate FiO2 12/10/20 08:23 16 Room Air 12/10/20 08:23 72 125/60 12/10/20 06:46 98.0 12/09/20 21:07 97 I & O 12/09/20 12/09/20 12/10/20 15:00 23:00 07:00 Intake Total 600 ml 560 ml Balance 600 ml 560 ml Labs: Laboratory Tests Test 12/09/20 19:19 12/10/20 08:21 Glucose (Fingerstick) 183 mg/dL (70-99) H 139 mg/dL (70-99) H Current Medications: Meds: Laboratory Tests Test 12/09/20 19:19 12/10/20 08:21 Glucose (Fingerstick) 183 mg/dL 139 mg/dL Current Medications Medications (Trade) Dose Ordered Sig/Fam Route PRN Reason Start Time Stop Time Status Last Admin Dose Admin Acetaminophen (Tylenol) 650 mg PRN Q6HRS PRN PO MILD PAIN / TEMP > 100.3'F 11/29/20 21:45 12/03/20 16:05 Multi-Ingredient Ointment (Analgesic [place]) 1 rena PRN QID PRN TP MUSCLE PAIN 11/29/20 21:45 Al Hydroxide/Mg Hydroxide (Mylanta Plus Xs) 15 ml PRN AFTMEALHC PRN PO DYSPEPSIA, 2ND CHOICE 11/29/20 21:45 Magnesium Hydroxide (Milk Of Magnesia) 2,400 mg PRN QHS PRN PO CONSTIPATION 11/29/20 21:45 Alprazolam (Xanax) 0.125 mg PRN Q6HRS PRN PO ANXIETY / AGITATION 11/29/20 22:00 Paroxetine HCl (Paxil) 20 mg DAILY PO 11/30/20 09:00 12/02/20 12:58 DC 12/02/20 08:57 Apixaban (Eliquis) 5 mg BID PO 11/30/20 09:00 12/10/20 08:21 Aspirin (Aspirin Chewable) 81 mg DAILY PO 11/30/20 09:00 12/10/20 08:22 Calcium Carbonate/ Glycine (Tums) 500 mg PRN Q6HRS PRN PO INDIGESTION, 1ST CHOICE 11/30/20 07:45 12/01/20 12:46 Diclofenac Sodium (Voltaren) 1 rena PRN Q6HRS PRN TP pain L hip 11/30/20 07:45 Diltiazem HCl (Cardizem 24hr Cd) 120 mg DAILY PO 11/30/20 09:00 12/10/20 08:23 Furosemide (Lasix) 40 mg DAILY PO 11/30/20 09:00 12/10/20 08:24 Glipizide (Glucotrol) 5 mg BIDWMEALS PO 11/30/20 08:00 12/10/20 08:21 Acetaminophen/ Hydrocodone Bitart (Lortab 5/325) 1.5 tab QID PO 11/30/20 09:00 12/10/20 08:23 Levothyroxine Sodium (Synthroid) 25 mcg DAILYAC PO 11/30/20 08:00 11/30/20 14:15 DC 11/30/20 08:12 Pantoprazole Sodium (Protonix) 40 mg DAILY PO 11/30/20 09:00 12/10/20 08:24 Potassium Chloride (Klor-Con) 20 meq DAILY PO 11/30/20 09:00 12/10/20 08:21 Senna/Docusate Sodium (Senna Plus) 2 tab DAILY PO 11/30/20 09:00 12/10/20 08:23 Non-Formulary Medication (Carboxymethylcellulose Sodium (Refresh Tears)) 1 drp TID OP 11/30/20 09:00 11/30/20 07:55 DC Non-Formulary Medication (Multivitamin (Multivitamins)) 1 each DAILY PO 11/30/20 09:00 11/30/20 07:55 DC Non-Formulary Medication (Sitagliptin Phosphate (Januvia)) 100 mg DAILY PO 11/30/20 09:00 11/30/20 07:51 DC Linagliptin (Tradjenta) 5 mg DAILY PO 11/30/20 09:00 12/10/20 08:22 Multivitamins/ Minerals (I-Bridget) 1 tab DAILY PO 11/30/20 09:00 12/10/20 08:21 Artificial Tears (Refresh Classic) 1 drop TID OU 11/30/20 09:00 12/10/20 08:24 Levothyroxine Sodium (Synthroid) 25 mcg 0600 PO 12/01/20 06:00 12/10/20 05:55 Sertraline HCl (Zoloft) 50 mg DAILY PO 12/03/20 09:00 12/04/20 18:36 DC 12/04/20 08:24 Buspirone HCl (Buspar) 5 mg 0900,1700 PO 12/02/20 17:00 12/07/20 18:33 DC 12/07/20 17:32 Sertraline HCl (Zoloft) 75 mg DAILY PO 12/05/20 09:00 12/10/20 08:22 Buspirone HCl (Buspar) 10 mg 0900,1700 PO 12/08/20 09:00 12/10/20 08:21 I have reviewed the current psychotropics carefully including drug interactions. Risk benefit ratio favors no change other than as noted in my dictated progress note. Diagnosis: Problems: (1) Major depressive disorder (2) Mild cognitive impairment (3) Anxiety disorder, unspecified (4) Impulse control disorder GERRY TAYLOR MD Dec 10, 2020 09:32
--- NOTE | 2020-12-10 13:45 | NUR ---
Transition Record was faxed to follow-up provider with the following elements: Reason for admission, procedures, tests, principal diagnosis, pending studies, patient instructions, 11/12 contact information for unit, phone number to obtain pending test results, plan for follow-up care, physician follow-up, advanced directive information, and medication list with dose, duration and instructions. This information was included in the following documents: History and physical, lab results, study results, progress notes, social work planning form, DC instruction form, patient visit summary, and medication reconciliation form. Date & time record faxed: 13:04 10 December 2020 Record faxed to: [facility] Record discussed with/ report given to: GERALDINE Howard at [facility]
--- NOTE | 2020-12-10 22:19 | PDOC ---
Exam Note: [place]on Note: Please also refer to the separate dictated note~for this date of service dictated separately.~Patient seen individually. Discussed the patient with Nursing staff reviewed the chart.~Reviewed interim history and current functioning. Reviewed vital signs,~Labs/ Radiology~and current medications noted below. Continue current treatment with the changes noted in the dictated addendum note Assessment: Vital Signs/I&O: Vital Signs Date Time Temp Pulse Resp B/P (MAP) Pulse Ox O2 Delivery O2 Flow Rate FiO2 12/10/20 12:41 16 97 Room Air 12/10/20 08:23 72 125/60 12/10/20 06:46 98.0 I & O 12/09/20 12/09/20 12/10/20 15:00 23:00 07:00 Intake Total 600 ml 560 ml Balance 600 ml 560 ml Labs: Laboratory Tests Test 12/10/20 08:21 Glucose (Fingerstick) 139 mg/dL (70-99) H Current Medications: Meds: Laboratory Tests Test 12/10/20 08:21 Glucose (Fingerstick) 139 mg/dL Current Medications Medications (Trade) Dose Ordered Sig/Fam Route PRN Reason Start Time Stop Time Status Last Admin Dose Admin Acetaminophen (Tylenol) 650 mg PRN Q6HRS PRN PO MILD PAIN / TEMP > 100.3'F 11/29/20 21:45 12/10/20 13:58 DC 12/03/20 16:05 Multi-Ingredient Ointment (Analgesic [place]) 1 rena PRN QID PRN TP MUSCLE PAIN 11/29/20 21:45 12/10/20 13:58 DC Al Hydroxide/Mg Hydroxide (Mylanta Plus Xs) 15 ml PRN AFTMEALHC PRN PO DYSPEPSIA, 2ND CHOICE 11/29/20 21:45 12/10/20 13:58 DC Magnesium Hydroxide (Milk Of Magnesia) 2,400 mg PRN QHS PRN PO CONSTIPATION 11/29/20 21:45 12/10/20 13:58 DC Alprazolam (Xanax) 0.125 mg PRN Q6HRS PRN PO ANXIETY / AGITATION 11/29/20 22:00 12/10/20 13:58 DC Paroxetine HCl (Paxil) 20 mg DAILY PO 11/30/20 09:00 12/02/20 12:58 DC 12/02/20 08:57 Apixaban (Eliquis) 5 mg BID PO 11/30/20 09:00 12/10/20 13:58 DC 12/10/20 08:21 Aspirin (Aspirin Chewable) 81 mg DAILY PO 11/30/20 09:00 12/10/20 13:58 DC 12/10/20 08:22 Calcium Carbonate/ Glycine (Tums) 500 mg PRN Q6HRS PRN PO INDIGESTION, 1ST CHOICE 11/30/20 07:45 12/10/20 13:58 DC 12/01/20 12:46 Diclofenac Sodium (Voltaren) 1 rena PRN Q6HRS PRN TP pain L hip 11/30/20 07:45 12/10/20 13:58 DC Diltiazem HCl (Cardizem 24hr Cd) 120 mg DAILY PO 11/30/20 09:00 12/10/20 13:58 DC 12/10/20 08:23 Furosemide (Lasix) 40 mg DAILY PO 11/30/20 09:00 12/10/20 13:58 DC 12/10/20 08:24 Glipizide (Glucotrol) 5 mg BIDWMEALS PO 11/30/20 08:00 12/10/20 13:58 DC 12/10/20 08:21 Acetaminophen/ Hydrocodone Bitart (Lortab 5/325) 1.5 tab QID PO 11/30/20 09:00 12/10/20 13:58 DC 12/10/20 12:41 Levothyroxine Sodium (Synthroid) 25 mcg DAILYAC PO 11/30/20 08:00 11/30/20 14:15 DC 11/30/20 08:12 Pantoprazole Sodium (Protonix) 40 mg DAILY PO 11/30/20 09:00 12/10/20 13:58 DC 12/10/20 08:24 Potassium Chloride (Klor-Con) 20 meq DAILY PO 11/30/20 09:00 12/10/20 13:59 DC 12/10/20 08:21 Senna/Docusate Sodium (Senna Plus) 2 tab DAILY PO 11/30/20 09:00 12/10/20 13:59 DC 12/10/20 08:23 Non-Formulary Medication (Carboxymethylcellulose Sodium (Refresh Tears)) 1 drp TID OP 11/30/20 09:00 11/30/20 07:55 DC Non-Formulary Medication (Multivitamin (Multivitamins)) 1 each DAILY PO 11/30/20 09:00 11/30/20 07:55 DC Non-Formulary Medication (Sitagliptin Phosphate (Januvia)) 100 mg DAILY PO 11/30/20 09:00 11/30/20 07:51 DC Linagliptin (Tradjenta) 5 mg DAILY PO 11/30/20 09:00 12/10/20 13:59 DC 12/10/20 08:22 Multivitamins/ Minerals (I-Bridget) 1 tab DAILY PO 11/30/20 09:00 12/10/20 13:59 DC 12/10/20 08:21 Artificial Tears (Refresh Classic) 1 drop TID OU 11/30/20 09:00 12/10/20 13:59 DC 12/10/20 08:24 Levothyroxine Sodium (Synthroid) 25 mcg 0600 PO 12/01/20 06:00 12/10/20 13:59 DC 12/10/20 05:55 Sertraline HCl (Zoloft) 50 mg DAILY PO 12/03/20 09:00 12/04/20 18:36 DC 12/04/20 08:24 Buspirone HCl (Buspar) 5 mg 0900,1700 PO 12/02/20 17:00 12/07/20 18:33 DC 12/07/20 17:32 Sertraline HCl (Zoloft) 75 mg DAILY PO 12/05/20 09:00 12/10/20 13:59 DC 12/10/20 08:22 Buspirone HCl (Buspar) 10 mg 0900,1700 PO 12/08/20 09:00 12/10/20 13:59 DC 12/10/20 08:21 I have reviewed the current psychotropics carefully including drug interactions. Risk benefit ratio favors no change other than as noted in my dictated progress note. Diagnosis: Problems: (1) Major depressive disorder (2) Mild cognitive impairment (3) Anxiety disorder, unspecified (4) Impulse control disorder GERRY TAYLOR MD Dec 10, 2020 22:18
--- NOTE | 2020-12-12 01:52 | DS ---
DATE OF DISCHARGE: 12/10/2020 DISCHARGE SUMMARY/PSYCHIATRIC PROGRESS NOTE The service of 12/10/2020 was completed on telehealth visit because of the COVID-19 pandemic. REASON FOR ADMISSION: Please refer to the admission history for details, but briefly, the patient is an 80-year-old female referred to us from [facility], referred by Dr. Mckeon on account of increased anxiety, being intrusive ____ residents were angry at her. She was anxious, frequently on the call light, constantly touching other residents and entering their rooms, seeking help from peers, demanding and invasive. Behaviors were deemed disruptive, unmanageable at the facility. She had failed outpatient psychiatric interventions, referred for inpatient psychiatric stabilization. SIGNIFICANT FINDINGS AND CLINICAL COURSE: Following admission, the patient was seen daily individually by myself from a psychiatric standpoint, medical followup Dr. Reveles/Dr. Mathews. The patient was quite anxious, somewhat irritable with marked mood lability and being hard of hearing ____, even more challenging for her. She appeared depressed and anxious. Adjustments were made in her psychotropics and she seemed to respond to a combination of Zoloft 75 mg a day, BuSpar 10 mg twice a day, Xanax p.r.n. Prior to discharge on 12/10/2020, ambulation impaired, hard of hearing. REVIEW OF SYSTEMS: No CV, , pulmonary, eye system symptoms on review. MENTAL STATUS EXAMINATION: Patient is oriented to herself, situation. Speech is coherent, has some latency, at times a little pressured. Abstraction fair. Computation impaired. Language function intact. Mood and affect, lability is improved. LABORATORY DATA: Reviewed. FINAL DIAGNOSES: Major depressive disorder, recurrent, in partial remission; anxiety disorder, unspecified; impulse control disorder, unspecified. Rest unchanged from admission. DISCHARGE MEDICATIONS: Please refer to the MRAD. DISCHARGE INSTRUCTIONS: Outpatient psychiatric and medical followup at the skilled nursing. TALIA/DOUG DR: Federico TID: [id number]
== END 2020-12-10 13:45 | DRG 885 ==
LOC: ER 18:51 → GEROPSY 21:24
PROVIDERS: ADMIT Psychiatry & Neurology Psychiatry; ATTEND Psychiatry & Neurology Psychiatry
DX: F33.9 Major depressive disorder, recurrent, unspecified (principal); I69.853 Hemiplegia and hemiparesis following other cerebrovascular disease affecting right non-dominant side; E78.5 Hyperlipidemia, unspecified; E11.9 Type 2 diabetes mellitus without complications; E03.9 Hypothyroidism, unspecified; F03.90 Unspecified dementia, unspecified severity, without behavioral disturbance, psychotic disturbance, mood disturbance, and anxiety; F41.9 Anxiety disorder, unspecified; F63.9 Impulse disorder, unspecified; H91.90 Unspecified hearing loss, unspecified ear; I10 Essential (primary) hypertension; I48.0 Paroxysmal atrial fibrillation; M19.90 Unspecified osteoarthritis, unspecified site; Z02.89 Encounter for other administrative examinations; Z66 Do not resuscitate; Z79.01 Long term (current) use of anticoagulants; Z79.899 Other long term (current) drug therapy; K21.9 Gastro-esophageal reflux disease without esophagitis
CPT/HCPCS: 36415; 80053; 80061; 81001; 82306; 82607; 82947; 83036; 83540; 83550; 83735; 84436; 84443; 84480; 85025; 85379; 86592; 93005; U0005; 99285-25